=== PATIENT | female | born 1945 | race Caucasian/White ===

== ENCOUNTER 2019-07-27 07:58 | Outpatient (CLI) | payer MEDICARE, SELFPAY ==
--- NOTE | ~2019-07-27 | US_ITS ---
EXAMINATION: US art doppler w press [place] DATE: 07/27/2019 09:52 INDICATION: Arterial occlusive disease of the right lower extremity. TECHNIQUE: Segmental pressures and plethysmographic and Doppler waveforms of the brachial and lower e xtremity arteries were obtained. COMPARISON: None. FINDINGS: Right brachial artery pressure is 155 mm Hg. The left brachial artery pressure was not measured. The right low-thigh pressure index is 0.72. The right ankle-brachial index (ARABELLA) is 0.46 (normal >= 0 .9-1.0). The right great toe-brachial index (TBI) is 0.20 (normal >= 0.65). The right lower extremity segmental pressure gradients are borderline increased between the below-knee measurement and ankle ( normal gradients <= 20-30 mmHg between adjacent levels on the same leg or the same levels on the two legs). Arterial Doppler waveforms are biphasic in common femoral artery and superficial femoral arter y, noisy in popliteal artery and posterior tibial artery, and biphasic in dorsalis pedis. The left high-thigh pressure index is 1.11. The left ARABELLA is 1.06. The left TBI is 0.88. The left lowe r extremity segmental pressure gradients normal. Arterial Doppler waveforms are biphasic from common femoral artery to the ankle. The flow direction is reversed in posterior tibial artery. IMPRESSION: 1. Severely decreased right ARABELLA and TBI, consistent with right-sided arterial occlusive disease, whic h may be multifocal. Reviewed, dictated and finalized at location A. IMPRESSION: 1. Severely decreased right ARABELLA and TBI, consistent with right-sided arterial o cclusive disease, which may be multifocal.
== END 2019-07-27 07:59 | disposition home or self-care (01) ==
PROVIDERS: PCP Family Medicine; Visit Provider Podiatrist Foot & Ankle Surgery
DX: I73.9 Peripheral vascular disease, unspecified (principal)
CPT/HCPCS: 93923

== ENCOUNTER 2019-08-19 13:34 | Outpatient (CLI) | payer MEDICARE, SELFPAY ==
--- NOTE | ~2019-08-19 | MR_ITS ---
EXAMINATION: MR lumbar spine wo con EXAM DATE: 08/19/2019 14:43 INDICATION: Radiculopathy lumbosacral region. TECHNIQUE: Multi-sequential, multiplanar MR images of the lumbar spine were obtained without contrast . Sagittal T1, T2, T2 fat saturation images. Axial T2 weighted images. Comparison is made to prior examination from 02/19/2018. FINDINGS: There are chronic compression fractures T12-L5, all have been treated with vertebroplasty. More specifically, moderate anterior wedging of T12, mild to moderate at L1 and L2, moderate central compression of L3 and L4, mild to moderate at L5. There is 2 mm retrolisthesis L3 on L4. The conus me dullaris terminates at the T12-L1 level and has normal signal intensity and morphology. No bone елена ow edema, no sacral edema. Incidental note made of incompletely imaged abdominal aortic aneurysm, gianluca ged portion measuring 3.6 cm. Level by level evaluation: T11-12: There is a mild diffuse disc bulge. Facet arthropathy: Mild. Neural foraminal stenosis: Mild to moderate right, mild left. Central canal stenosis: Minimal. T12-L1: There is a mild diffuse disc bulge. Facet arthropathy: Mild to moderate right, mild left. Neural foraminal stenosis: No stenosis. Central canal stenosis: Minimal. L1-L2: There is a mild to moderate diffuse disc bulge. Facet arthropathy: Mild to moderate . Ligamentum flavum enlargement. Neural foraminal stenosis: Mild to moderate right, mild left. Central canal stenosis: Mild. L2-L3: There is a moderate diffuse disc bulge. Facet arthropathy: Moderate. Neural foraminal stenosis: Mild to moderate right, mild left. Central canal stenosis: Mild to moderate. L3-L4: There is a moderate diffuse disc bulge. Facet arthropathy: Moderate . Ligamentum flavum enlargement. Neural foraminal stenosis: Moderate bilateral. Central canal stenosis: Moderate. L4-L5: There is a mild to moderate diffuse disc bulge. Facet arthropathy: Mild to moderate. Neural foraminal stenosis: Moderate bilateral. Central canal stenosis: Moderate. L5-S1: There is a minimal diffuse disc bulge. Facet arthropathy: Mild. Neural foraminal stenosis: No stenosis. Central canal stenosis: No stenosis. Compared to prior study, there has been progression of the compression fractures at T12 and L1, and i nterval treatment of these levels with methylmethacrylate. IMPRESSION: 1. Chronic, treated compression fractures T12-L5. No acute findings. 2. Overall moderate lumbar spondylosis. 3. Incidental abdominal aortic aneurysm, has been previously evaluated. Reviewed, dictated and finalized at location A.
== END 2019-08-19 13:35 | disposition home or self-care (01) ==
LOC: ANHIMG 13:40
PROVIDERS: PCP Family Medicine; Visit Provider Nurse Practitioner Family
DX: M47.26 Other spondylosis with radiculopathy, lumbar region (principal); M48.55XD Collapsed vertebra, not elsewhere classified, thoracolumbar region, subsequent encounter for fracture with routine healing; I71.4 Abdominal aortic aneurysm, without rupture
CPT/HCPCS: 72148

== ENCOUNTER 2020-02-14 16:19 | Outpatient (CLI) | payer MEDICARE, SELFPAY ==
--- NOTE | ~2020-02-14 | MM_ITS ---
EXAMINATION: MM screening yasmeen BI w mari HISTORY: Screening TECHNIQUE: Craniocaudal and mediolateral oblique 3-D tomosynthesis images were obtained and synthetic 2-D images were generated. CAD analysis was submitted and interpreted. COMPARISON: Comparison to multiple prior studies sequentially, with oldest reviewed study dated 06/30. BREAST PARENCHYMAL COMPOSITION: There are scattered areas of fibroglandular density. FINDINGS: There is no evidence of suspicious mass, calcification, or architectural distortion to sugg est malignancy in either breast. There has been no suspicious interval change. IMPRESSION: 1. No mammographic evidence of malignancy. 2. Recommend routine screening mammography in one year. BI-RADS Category 1: Negative Reviewed, dictated and finalized at location A. MANAGER
== END 2020-02-14 16:20 | disposition home or self-care (01) ==
LOC: ANHIMG 16:21
PROVIDERS: Visit Provider Family Medicine
DX: Z12.31 Encounter for screening mammogram for malignant neoplasm of breast (principal)
CPT/HCPCS: 77063; 77067

== ENCOUNTER → 2020-04-09 10:07 | Outpatient (CLI) | payer MEDICARE, SELFPAY ==
--- NOTE | ~2020-04-09 | DEXA_ITS ---
Bone Density Report Name: Kailee Diaz Age: 74 Sex: Female Ethnicity: White Date of : 1945 Indication: postmenopausal osteoporosis; monitoring treatment; parental hip fracture; height loss; prior fracture; asthma or emphysema; hysterectomy; Referring Provider: Bright Berry Study: Bone densitometry was performed. Exam Date: April 09, 2020 Accession number: [id number] Bone Density: Region BMD T-score Z-score Classification Femoral Neck (Left) 0.494 -3.2 -1.1 Osteoporosis Total Hip (Left) 0.591 -2.9 -1.1 Osteoporosis World Health Organization criteria for BMD impression classify patients as: Normal (T-score at or above -1.0), Osteopenia (T-score between -1.0 and -2.5), or Osteoporosis (T-score at or below -2.5). 10-year Fracture Risk: FRAX not reported because: Some T-score for Spine Total or Hip Total or Femoral Neck at or below -2.5 Prior hip or vertebral fracture Treated for osteopor Previous Exams: Region Exam Age BMD T-score BMD Change BMD Change Date g/cm2 vs Baseline vs Previous Total Hip(Left) 04/09/2020 74 0.591 -2.9 -0.016 -0.016 02/15/2018 72 0.607 -2.7 *Denotes significance at 95% confidence level, LSC for Total Hip = 0.027 g/cm2 Clinical Information Provided by Patient: Have had a previous hip or vertebral fracture Has had a low trauma fracture Parent has had a hip fracture Is being treated for osteoporosis Has used the following medications: Prolia (i.e. denosumab), Vitamin D, Calcium Has the following medical conditions: Asthma or Emphysema, Hysterectomy Patient maximum height was 66 Menopause Age: 30 No regular weight bearing exercise Drinks caffeinated beverages Onset of menses at age 15 Number of children 2 Impression: The patient has established osteoporosis, based on the Left Femoral Neck T-score and the existence of a prior fracture. The patient has risk factors, including: parental hip fracture, previous fracture. No significant bone loss was observed. Discussion: PATIENT UNDER TREATMENT WITH NO SIGNIFICANT BMD LOSS SINCE LAST EXAM. In an untreated patient, BMD typically declines with age. A lack of decline or gain is usually a sign that treatment is efficacious and fracture risk is reduced. It is important to ask patients whether they are taking their medications and to encourage continued and appropriate compliance with their osteoporosis therapies to reduce fracture risk. It is also important to review their risk factors and encourage appropriate calcium and vitamin D intakes, exercise, fall prevention and other lifestyle
== END ==
PROVIDERS: PCP Family Medicine
DX: M81.0 Age-related osteoporosis without current pathological fracture (principal)
CPT/HCPCS: 77080

== ENCOUNTER → 2021-01-28 15:06 | Outpatient (CLI) | payer MEDICARE, SELFPAY ==
--- NOTE | ~2021-01-28 | XR_ITS ---
EXAMINATION: XR sinus min 3V DATE: 01/28/2021 15:22 INDICATION: Nasal congestion. Nasal drainage. Cough. TECHNIQUE: 5 views of the paranasal sinuses were obtained. COMPARISON: PET/CT 03/05/2016 FINDINGS: There is rightward deviation of the nasal septum. No fracture. The paranasal sinuses are gr ossly clear, but note that CT is more sensitive. IMPRESSION: 1. Rightward deviation of the nasal septum. Reviewed, dictated and finalized at location A.
== END ==
PROVIDERS: PCP Family Medicine; Visit Provider Family Medicine
DX: R09.81 Nasal congestion (principal); J34.2 Deviated nasal septum
CPT/HCPCS: 70220

== ENCOUNTER 2021-02-28 09:04 | Outpatient (CLI) | payer MEDICARE, SELFPAY ==
--- NOTE | ~2021-02-28 | US_ITS ---
EXAMINATION: US aorta EXAM DATE: 02/28/2021 09:55 INDICATION: AAA w/o rupture AAA . TECHNIQUE: Multiple grayscale and Doppler images of the abdominal aorta were obtained (by a technolog ist who performed the scan) and subsequently reviewed. Comparison is made to prior examination from . FINDINGS: Dimensions of mid abdominal aortic fusiform aneurysm reported on prior 2019 ultrasound were 4.1 x 3.6 cm. Maximal dimensions on this examination at 4.6 x 4.2 cm, mild interval increase in size. IMPRESSION: Increase in size of mid abdominal aortic 4.6 x 4.2 cm aneurysm. Reviewed, dictated and finalized at location B. 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
== END 2021-02-28 09:05 | disposition home or self-care (01) ==
PROVIDERS: PCP Family Medicine
DX: I71.4 Abdominal aortic aneurysm, without rupture (principal)
CPT/HCPCS: 76775

== ENCOUNTER 2021-03-25 00:36 | Day surgery (SDC) | payer MEDICARE, SELFPAY ==
[2021-03-13 14:54] VITALS: BMI 21.6
[2021-03-25 09:36] VITALS: BP 133/76; PULSE 77; RESP 18; TEMP 36.9; O2SAT 97; BMI 20.7
[2021-03-25] MEDS: LACTATED RINGERS 1,000 ML 150 ML IV CONT (09:49)
--- NOTE | 2021-03-25 09:57 | WPDGICN ---
Assessment and Plan Assessment and plan (1) Family history of colon cancer in mother: Code(s): Z80.0 - Family history of malignant neoplasm of digestive organs Status: Acute Assessment and Plan: Patient's mother had colon cancer. For this reason screening colonoscopy is advised. GI Consult Note Consult date/time: 03/25/21 09:57 HPI: Kailee Diaz is a 75 year old female Presents for screening colonoscopy. Patient's family history is significant that her mother had colon cancer. Patient's current weight appetite and bowel movements are normal. She denies abdominal pain. She has had no bleeding. 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 Murmur Numbness and tingling of both legs below knees Osteoarthritis Osteoporosis PAD (peripheral artery disease) w/ stents Personal history of malignant neoplasm of bronchus and lung Prediabetes Skin cancer (melanoma) Surgical History Surgical History History of vertebroplasty (~12/17/20) Hx of kyphoplasty (~01/22/21) Family History Family History Sibling Family history of cardiovascular disease Mother Carcinoma of colon, Onset Age: 72 Father Family history of lung cancer, Onset Age: 82 Mother Family history of cardiovascular disease Carcinoma of colon Family history of coronary artery disease Sibling Acute myocardial infarction, Onset Age: 68 Father Family history of lung cancer Social History Social History Smoking packs per day: 1 Smoking cigarettes per day: 20.0 Years smoked: 30 Smoking pack-years: 30.00 Smoking status: Former smoker Tobacco type: cigarettes Second hand tobacco smoke exposure: No Smoking end date: 04/13/15 Alcohol intake: never Living arrangements: with family Gender identity (if verbalized by the patient): Female Spiritual care concerns: No Meds Home Medications and Allergies Home Medications Medication Instructions Recorded Confirmed Type calcium carbonate 200 mg calcium 200 mg PO BID 02/24/19 03/13/21 History (500 mg) chewable tablet cranberry extract 500 mg tablet 500 mg PO BID 02/24/19 03/13/21 History aaebhqdkvidk-Vj-pzyz-minerals 1 tablet PO DAILY 02/24/19 03/13/21 History aspirin 81 mg tablet,delayed 81 mg PO DAILY 09/22/19 03/13/21 History release lisinopril 20 1 tablet PO DAILY tablet 10/25/20 03/13/21 History mg-hydrochlorothiazide 25 mg tablet omeprazole 40 mg capsule,delayed 40 mg PO DAILY cap 10/25/20 03/13/21 History release rosuvastatin 5 mg tablet 5 mg PO DAILY #90 tablet 12/10/20 03/13/21 Rx alendronate 70 mg tablet 70 mg PO WEEKLY #12 tablet 01/08/21 03/13/21 Rx Symbicort 160 mcg-4.5 See Rx Instructions .ROUTE 02/07/21 03/13/21 Rx mcg/actuation HFA aerosol inhaler .COMPLEX #11 g NS tramadol 50 mg tablet 50 mg PO Q8H PRN #90 tablet 02/14/21 03/13/21 Rx albuterol sulfate 2 inh INHALATION Q4-6H PRN 03/13/21 03/13/21 History clindamycin HCl 300 mg capsule See Rx Instructions .ROUTE 03/19/21 Rx .COMPLEX #30 cap ipratropium bromide 42 mcg (0.06 2 spray INTRANASAL TID #15 ml 03/19/21 Rx %) nasal spray Allergies Allergy/AdvReac Type Severity Reaction Status Date / Time amoxicillin Allergy Unknown Nausea Verified 03/25/21 09:35 shellfish derived Allergy Unknown Swelling Verified 1
--- NOTE | 2021-03-25 10:04 | WPDANESEPPF ---
Anes - Initial Pre Proc Eval Procedure: Operation Date: 03/25/21 10:30 Proposed Procedures p Screening Colonoscopy - Joshua Garcia MD Date/Time: 03/25/21 10:04 Surgeon: Joshua Garcia MD Pre Op Diagnosis: family hx colon ca Patient Data Age: 75 Gender: F Height: 1.65 m Weight: 56.7 kg Last Vital Signs Temp 36.9 C 03/25/21 09:36 Pulse 77 03/25/21 09:36 Resp 18 03/25/21 09:36 BP 133/76 03/25/21 09:36 Pulse Ox 97 03/25/21 09:36 Allergies Allergy/AdvReac Type Severity Reaction Status Date / Time amoxicillin Allergy Unknown Nausea Verified 03/25/21 09:35 shellfish derived Allergy Unknown Swelling Verified 03/25/21 09:35 simvastatin Allergy Unknown arthralgias Verified 03/25/21 09:35 sulfamethizole Allergy Unknown Nausea Verified 03/25/21 09:35 codeine AdvReac Unknown Nausea Verified 03/25/21 09:35 Home Medications Medication Instructions Recorded Confirmed Type calcium carbonate 200 mg calcium 200 mg PO BID 02/24/19 03/13/21 History (500 mg) chewable tablet cranberry extract 500 mg tablet 500 mg PO BID 02/24/19 03/13/21 History wfpmlfaokrij-Pf-xiaz-minerals 1 tablet PO DAILY 02/24/19 03/13/21 History aspirin 81 mg tablet,delayed 81 mg PO DAILY 09/22/19 03/13/21 History release lisinopril 20 1 tablet PO DAILY tablet 10/25/20 03/13/21 History mg-hydrochlorothiazide 25 mg tablet omeprazole 40 mg capsule,delayed 40 mg PO DAILY cap 10/25/20 03/13/21 History release rosuvastatin 5 mg tablet 5 mg PO DAILY #90 tablet 12/10/20 03/13/21 Rx alendronate 70 mg tablet 70 mg PO WEEKLY #12 tablet 01/08/21 03/13/21 Rx Symbicort 160 mcg-4.5 See Rx Instructions .ROUTE 02/07/21 03/13/21 Rx mcg/actuation HFA aerosol inhaler .COMPLEX #11 g NS tramadol 50 mg tablet 50 mg PO Q8H PRN #90 tablet 02/14/21 03/13/21 Rx albuterol sulfate 2 inh INHALATION Q4-6H PRN 03/13/21 03/13/21 History clindamycin HCl 300 mg capsule See Rx Instructions .ROUTE 03/19/21 Rx .COMPLEX #30 cap ipratropium bromide 42 mcg (0.06 2 spray INTRANASAL TID #15 ml 03/19/21 Rx %) nasal spray Patient hx anesthesia problems: none Family hx anesthesia problems: none Results Review: All pre-operative results and documents have been reviewed as part of the pre-operative evaluation. 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 Murmur Numbness and tingling of both legs below knees Osteoarthritis Osteoporosis PAD (peripheral artery disease) w/ stents Personal history of malignant neoplasm of bronchus and lung Prediabetes Skin cancer (melanoma) Surgical History Surgical History History of vertebroplasty (~12/17/20) Hx of kyphoplasty (~01/22/21) Family History Family History Sibling Family history of cardiovascular disease Mother Carcinoma of colon, Onset Age: 72 Father Family history of lung cancer, Onset Age: 82 Mother Family history of cardiovascular disease Carcinoma of colon Family history of coronary artery disease Sibling Acute myocardial infarction, Onset Age: 68 Father Family history of lung cancer Social History Social History Smoking packs per day: 1 Smoking cigarettes per day: 20.0 Years smoked: 30 Smoking pack-years: 30.00 Smoking status: Former smoker Tobacco type: cigarettes Second hand tobacco smoke exposure: No Smoking end date: 04/13/15 Alcohol intake: never Living arrangements: with family Gender identity (if verbalized by the
[2021-03-25 11:04] VITALS: BP 85/40; PULSE 72; RESP 18; O2SAT 100
[2021-03-25 11:14] VITALS: BP 106/53; PULSE 71; RESP 18; O2SAT 100
[2021-03-25 11:24] VITALS: BP 118/70; PULSE 68; RESP 20; O2SAT 99
== END 2021-03-25 11:34 | disposition home or self-care (01) ==
PROVIDERS: PCP Family Medicine; Visit Provider Internal Medicine Gastroenterology
PROC: 0DJD8ZZ Inspection of Lower Intestinal Tract, Via Natural or Artificial Opening Endoscopic (ICD-10-PCS; CPT 45378; principal; 2021-03-25 10:30)
DX: Z12.11 Encounter for screening for malignant neoplasm of colon (principal); K57.30 Diverticulosis of large intestine without perforation or abscess without bleeding; Z80.0 Family history of malignant neoplasm of digestive organs; I73.9 Peripheral vascular disease, unspecified; I71.4 Abdominal aortic aneurysm, without rupture; I10 Essential (primary) hypertension; E78.5 Hyperlipidemia, unspecified; J44.9 Chronic obstructive pulmonary disease, unspecified; K21.9 Gastro-esophageal reflux disease without esophagitis; M81.0 Age-related osteoporosis without current pathological fracture; M19.90 Unspecified osteoarthritis, unspecified site; M54.2 Cervicalgia; M54.9 Dorsalgia, unspecified; G89.29 Other chronic pain; R73.03 Prediabetes; R01.1 Cardiac murmur, unspecified; Z79.82 Long term (current) use of aspirin; Z86.718 Personal history of other venous thrombosis and embolism; Z85.118 Personal history of other malignant neoplasm of bronchus and lung; Z87.891 Personal history of nicotine dependence
CPT/HCPCS: G0105; J2704; J7120

== ENCOUNTER → 2021-04-08 10:47 | Outpatient (CLI) | payer MEDICARE, SELFPAY ==
[2021-04-08 19:04] LABS: SARS-CoV-2 RNA PCR Negative
== END ==
PROVIDERS: PCP Family Medicine; Visit Provider Nurse Practitioner
DX: Z20.822 Contact with and (suspected) exposure to COVID-19 (principal)
CPT/HCPCS: C9803; U0003; U0005

== ENCOUNTER 2021-07-25 13:14 | Outpatient (CLI) | payer MEDICARE, SELFPAY ==
--- NOTE | ~2021-07-25 | US_ITS ---
EXAMINATION: US venous doppler LE RT DATE: 07/25/2021 14:03 INDICATION: Right lower limb pain. TECHNIQUE: Grayscale ultrasound images without and with compression and Doppler ultrasound images of the right lower extremity veins were obtained. COMPARISON: None. FINDINGS: The visualized portions of right common femoral vein, profunda (deep) femoral vein, femoral vein, pop liteal vein, peroneal veins, posterior tibial veins, and greater saphenous vein outflow are patent. IMPRESSION: 1. No deep venous thrombosis. Reviewed, dictated and finalized at location A.
== END 2021-07-25 13:15 | disposition home or self-care (01) ==
LOC: ANHIMG 13:20
PROVIDERS: PCP Family Medicine; Visit Provider Family Medicine
DX: M79.661 Pain in right lower leg (principal)
CPT/HCPCS: 93971

== ENCOUNTER 2022-02-06 11:09 | Outpatient (CLI) | payer MEDICARE, SELFPAY ==
[2022-02-06 18:45] LABS: Basophils Absolute Auto 0.1 K/mm3 (0.0-0.1); Basophils Percent Auto 1.5 % (0.2-1.2); Eosinophils Absolute Auto 0.4 K/mm3 (0-0.3); Eosinophils Percent Auto 5.4 % (0-4.4); Hemoglobin 11.3 g/dL (12.0-15.0); Immature Granulocyte Absolute 0.01 K/mm3 (0.00-0.031); Immature Granulocyte Percent A 0.2 % (0-0.5); Lymphocytes Absolute Auto 1.98 K/mm3 (0.9-3.2); Lymphocytes Percent Auto 29.8 % (18.3-44.2); Mean Corpuscular HGB Conc 32.3 g/dl (32-36); Mean Corpuscular Hemoglobin 27.6 pg (26-34); Mean Corpuscular Volume 85.4 fl (80-100); Mean Platelet Volume 10.1 fl (7.4-10.4); Monocytes Absolute Auto 0.6 K/mm3 (0.1-0.6); Monocytes Percent Auto 9.2 % (2.6-8.5); Neutrophils Absolute Auto 3.6 K/mm3 (1.3-6.7); Neutrophils Percent Auto 53.9 % (45.5-73.1); Platelet Count Result 307 k/mm3 (150-375); Red Cell Distribution Width 14.7 % (11.5-14.5); White Blood Count 6.7 K/mm3 (4.5-10.0)
[2022-02-06 19:23] LABS: Alanine Aminotransferase 21 U/L (6-35); Albumin Level 4.1 g/dL (3.5-5.1); Alkaline Phosphatase 85 U/L (38-126); Anion Gap 9 mmol/L (8-16); Aspartate Amino Transferase 32 U/L (14-36); Bilirubin,Total 0.4 mg/dL (0.2-1.3); Blood Urea Nitrogen 14 mg/dL (7-17); Calcium 8.9 mg/dL (8.4-10.2); Carbon Dioxide 26 mmol/L (22-30); Chloride 96 mmol/L (98-107); Cholesterol 198 mg/dL (0-200); Estimated Glomerular Filt Rate > 60; Glucose 102 mg/dL (65-110); HDL Direct 55 mg/dL; Potassium 4.2 mmol/L (3.4-5.0); Sodium 131 mmol/L (137-145); Triglycerides 142 mg/dL (<150)
[2022-02-06 19:34] LABS: LDL Cholesterol Direct 98 mg/dL
[2022-02-06 19:36] LABS: Vitamin D 25 Hydroxy 50.5 ng/mL
[2022-02-06 22:27] LABS: Hemoglobin A1C 5.9 % (<5.7)
== END 2022-02-06 11:10 | disposition home or self-care (01) ==
LOC: ANHGOSHLAB 11:13
PROVIDERS: PCP Family Medicine; Visit Provider Family Medicine
DX: E78.5 Hyperlipidemia, unspecified (principal); I10 Essential (primary) hypertension; Z79.899 Other long term (current) drug therapy; Z00.00 Encounter for general adult medical examination without abnormal findings; R73.03 Prediabetes; E55.9 Vitamin D deficiency, unspecified
CPT/HCPCS: 36415; 80053; 80061; 82306; 82607; 83036; 84443; 85025

== ENCOUNTER 2022-04-11 10:41 | Outpatient (CLI) | payer MEDICARE, SELFPAY ==
--- NOTE | ~2022-04-11 | MM_ITS ---
EXAMINATION: MM screening yasmeen BI w mari HISTORY: Screening mammogram TECHNIQUE: Craniocaudal and mediolateral oblique 3-D tomosynthesis images were obtained and synthetic 2-D images were generated. CAD analysis was submitted and interpreted. COMPARISON: 03/02/2020, 08/05/2018, 08/03/2017 bilateral screening mammogram examinations BREAST PARENCHYMAL COMPOSITION: The breasts are heterogeneously dense, which may obscure small masses . FINDINGS: There is no evidence of suspicious mass, calcification, or architectural distortion to sugg est malignancy in either breast. There has been no suspicious interval change. IMPRESSION: 1. No mammographic evidence of malignancy. 2. Recommend routine screening mammography one year. BI-RADS Category 1: Negative Reviewed, dictated and finalized at location A. TECHNICAL LEAD
== END 2022-04-11 10:42 | disposition home or self-care (01) ==
LOC: ANHIMG 10:42
PROVIDERS: PCP Family Medicine; Visit Provider Family Medicine
DX: Z12.31 Encounter for screening mammogram for malignant neoplasm of breast (principal)
CPT/HCPCS: 77063; 77067

== ENCOUNTER → 2023-01-12 08:52 | Outpatient (CLI) | payer MEDICARE, MEDICAID, SELFPAY ==
--- NOTE | ~2023-01-12 | CT_ITS ---
EXAMINATION: CTA chest abdomen pelvis DATE: 01/12/2023 09:37 INDICATION: Abdominal aortic aneurysm without rupture. TECHNIQUE: Computed tomographic angiography (CTA) of the chest, abdomen, and pelvis was performed wit h 100 mL Omnipaque-350 intravenous contrast. Automated exposure control and iterative reconstruction technique were employed. The dose-length product was 697.34 mGy-cm. Maximum intensity projection 3D-r econstructions of the aorta and other arteries were constructed by the technologist on a separate wor kstation. COMPARISON: Chest CT 10/20/2016 FINDINGS: CHEST CTA: There is mild emphysema. There are changes of left upper lobectomy. There is mild scarring at right l magalys apex. No pleural effusion. The heart size is normal. There are coronary artery calcifications. No pericardial effusion. The aorta measures 3.6 cm at the sinuses of Valsalva, 3.1 cm at the sinotubula r junction, 3.7 cm in the mid ascending aorta, 2.8 cm at the aortic isthmus, and 2.7 cm in the mid de scending aorta. Aortic atherosclerosis is noted. There is a moderate-sized sliding hiatal hernia. The re are chronic fractures of the T7, T8, T9, and T12 vertebral bodies with changes of vertebroplasties . ABDOMEN AND PELVIS CTA: The liver, gallbladder, spleen, pancreas, and adrenal glands are normal. There is cortical thinning o f the kidneys. There is diverticulosis of the colon without evidence of diverticulitis. There is a 4. 4 cm fusiform infrarenal aortic aneurysm. There is calcified atherosclerosis of the aorta and many of the other arteries. There is no significant stenosis of celiac axis. There is moderate stenosis of s uperior mesenteric artery and left renal artery. There is no significant stenosis of right renal troy ry. There is moderate stenosis of inferior mesenteric artery. There are no pathologically enlarged ly mph nodes. There is no free intraperitoneal fluid. There is a total right hip arthroplasty. There is an old healed fracture of right inferior pubic ramus. There are chronic fractures of L1-L5 vertebral bodies with changes of vertebroplasties. IMPRESSION: 1. 4.4 cm fusiform infrarenal aortic aneurysm. 2. Arterial occlusive disease including moderate stenosis of superior and inferior mesenteric arterie s and left renal artery. Reviewed, dictated and finalized at location E. IMPRESSION: 1. 4.4 cm fusiform infrarenal aortic aneurysm. 2. Arterial occlusive disease including moderate stenosis of superior and infer ior mesenteric arteries and left renal artery.
[2023-01-12 09:21] LABS: Estimated Glomerular Filt Rate 54
== END ==
PROVIDERS: PCP Family Medicine
DX: I71.43 Infrarenal abdominal aortic aneurysm, without rupture (principal); I70.1 Atherosclerosis of renal artery; K55.1 Chronic vascular disorders of intestine
CPT/HCPCS: 71275; 74174; Q9967

== ENCOUNTER → 2023-01-27 12:52 | Outpatient (CLI) | payer MEDICARE, MEDICAID, SELFPAY ==
--- NOTE | ~2023-01-27 | MR_ITS ---
MRI of the thoracic spine Clinical History: Back pain Technique: Axial T2-weighted and gradient images, and sagittal T1-weighted, T2-weighted, and STIR gianluca ges were acquired. COMPARISON: 04/20/2019 Findings: There are stable compression fractures with vertebroplasty cement at T7, T8, T9, T12, L1, a nd L2. These are unchanged from prior exam. No new fracture or subluxation evident. No suspicious bon e marrow signal abnormality seen. There is mild disc bulge with facet arthropathy at T11-T12, with probable mild central canal stenosis . No other spinal canal stenosis or cord compression evident in the remainder of the thoracic spine. No other disc bulge or herniation evident. Paravertebral soft tissues are unremarkable. Impression: Chronic compression fractures with vertebroplasty cement at T7, T8, T9, T12, L1, and L2. These are st able from prior exam. Mild to moderate degenerative spondylosis at T11-T12, with probable mild central canal stenosis. Reviewed, dictated and finalized at [facility]. Impression: Chronic compression fractures with vertebroplasty cement at T7, T8, T9, T12, L1 , and L2. These are stable from prior exam. Mild to moderate degenerative spondylosis at T11-T12, with probable mild centra l canal stenosis.
--- NOTE | ~2023-01-27 | MR_ITS ---
EXAMINATION: MR lumbar spine wo con DATE: 01/27/2023 13:47 INDICATION: Lumbago. TECHNIQUE: Magnetic resonance imaging (MRI) of the lumbar spine was performed without intravenous con trast. COMPARISON: Lumbar spine MRI 08/19/2019, CT abdomen and pelvis 01/12/2023 FINDINGS: There is 5 degrees levocurvature of thoracolumbar spine. There are chronic fractures of T12 -L5 vertebral bodies with changes of vertebroplasty at all levels. Intervertebral disc heights are no rmal. The distal spinal cord signal intensity is normal. The conus medullaris is at T12-L1. There is an insufficiency fracture of right sacral ala with edema-like marrow signal intensity. There is a 4.4 cm fusiform infrarenal aortic aneurysm. The following disc levels are specifically discussed: L1-L2: The disc is bulging. There is severe bilateral facet joint osteoarthritis. There is mild bilat eral neural foraminal stenosis. There is mild central canal stenosis. L2-L3: The disc is bulging. There is moderate bilateral facet joint osteoarthritis. There is moderate right and mild left neural foraminal stenosis. There is mild central canal stenosis. L3-L4: The disc is bulging. There is severe bilateral facet joint osteoarthritis. There is moderate b ilateral neural foraminal stenosis. There is mild central canal stenosis. L4-L5: The disc is bulging. There is severe bilateral facet joint osteoarthritis. There is moderate b ilateral neural foraminal stenosis. There is mild central canal stenosis. L5-S1: There is a left foraminal protrusion. There is moderate right and severe left facet joint oste oarthritis. There is mild bilateral neural foraminal stenosis. There is no central canal stenosis. IMPRESSION: 1. Subacute insufficiency fracture of right sacral ala. 2. Moderate lumbar spondylosis, stable from 08/19/2019. 3. 4.4 cm fusiform infrarenal aortic aneurysm. Reviewed, dictated and finalized at location E.
== END ==
PROVIDERS: PCP Nurse Practitioner Family; Visit Provider Nurse Practitioner Family
DX: M43.06 Spondylolysis, lumbar region (principal); M43.04 Spondylolysis, thoracic region; M48.54XA Collapsed vertebra, not elsewhere classified, thoracic region, initial encounter for fracture; M48.56XA Collapsed vertebra, not elsewhere classified, lumbar region, initial encounter for fracture; I71.43 Infrarenal abdominal aortic aneurysm, without rupture
CPT/HCPCS: 72146; 72148

== ENCOUNTER → 2023-03-25 14:07 | Outpatient (CLI) | payer MEDICARE, MEDICAID, SELFPAY ==
--- NOTE | ~2023-03-25 | DEXA_ITS ---
Bone Density Report Name: RAMON HARTMAN Age: 77 Sex: Female Ethnicity: White Date of : 1945 Indication: postmenopausal osteoporosis; monitoring treatment; parental hip fracture; height loss; prior fracture; hysterectomy; Referring Provider: Columba Billy Study: Bone densitometry was performed. Exam Date: March 25, 2023 Accession number: [id number] Bone Density: Region BMD T-score Z-score Classification Femoral Neck (Left) 0.520 -3.0 -0.8 Osteoporosis Total Hip (Left) 0.540 -3.3 -1.4 Osteoporosis World Health Organization criteria for BMD impression classify patients as: Normal (T-score at or above -1.0), Osteopenia (T-score between -1.0 and -2.5), or Osteoporosis (T-score at or below -2.5). 10-year Fracture Risk: FRAX not reported because: Some T-score for Spine Total or Hip Total or Femoral Neck at or below -2.5 Prior hip or vertebral fracture Treated for osteopor Previous Exams: Region Exam Age BMD T-score BMD Change BMD Change Date g/cm2 vs Baseline vs Previous Total Hip(Left) 03/25/2023 77 0.540 -3.3 -0.067* -0.051* 04/09/2020 74 0.591 -2.9 -0.016 -0.016 02/15/2018 72 0.607 -2.7 *Denotes significance at 95% confidence level, LSC for Total Hip = 0.027 g/cm2 Clinical Information Provided by Patient: Have had a previous hip or vertebral fracture Has had a low trauma fracture Parent has had a hip fracture Is being treated for osteoporosis Has used the following medications: Prolia (i.e. denosumab), Vitamin D, Calcium, INHALER Has the following medical conditions: Hysterectomy, COPD Patient maximum height was 66 Menopause Age: 30 No regular weight bearing exercise Does not regularly consume dairy products Drinks caffeinated beverages Onset of menses at age 15 Number of children 2 Impression: The patient has established osteoporosis, based on the Left Total Hip T-score and the existence of a prior fracture. The patient has risk factors, including: parental hip fracture, previous fracture. The BMD for the Total Hip(Left) decreased, changing by -0.051 since the last DXA exam. Discussion: SIGNIFICANT BONE LOSS OBSERVED. Adherence to therapy (including calcium and vitamin D intake) should be assessed. If compliance is not a factor, review management and exclusion of secondary causes of bone loss. It is important to ask patients whether they are taking their medications and to encourage continued and appropriate compliance with their osteoporosis therapies to reduce fracture risk. It is also important to review their risk factors and e
== END ==
PROVIDERS: PCP Family Medicine; Visit Provider Family Medicine
DX: M81.0 Age-related osteoporosis without current pathological fracture (principal); Z78.0 Asymptomatic menopausal state
CPT/HCPCS: 77080

== ENCOUNTER 2023-04-16 07:09 | Outpatient (RCR) | payer MEDICARE, MEDICAID, SELFPAY ==
[2023-03-27 09:30] VITALS: BMI 23.1
== END 2023-06-15 09:17 | disposition home or self-care (01) ==
LOC: ANHWOC 07:09
PROVIDERS: PCP Family Medicine; Visit Provider Family Medicine
DX: L97.929 Non-pressure chronic ulcer of unspecified part of left lower leg with unspecified severity (principal)
CPT/HCPCS: 99212; 99213; A9270; G0463

== ENCOUNTER 2023-06-26 08:02 | Outpatient (CLI) | payer MEDICARE, SELFPAY ==
--- NOTE | ~2023-06-26 | US_ITS ---
US arterial ankle brachial ind INDICATION: Peripheral vascular disease TECHNIQUE: Segmental pressures and plethysmographic and Doppler waveforms of the brachial and lower e xtremity arteries were obtained. COMPARISON: None. FINDINGS: Right and left brachial artery pressures of 165 mm Hg. Left brachial artery pressure not performed. The right ankle-brachial index (ARABELLA) is 0.69 (normal >= 0.9-1.0). The right great toe-brachial index (TBI) is 0.21 (normal >= 0.60). The left ARABELLA is 0.9. The left TBI is 0.67. IMPRESSION: 1. Moderate right and mild left peripheral arterial disease based on ankle and toe brachial indices. Reviewed, dictated and finalized at location A.
== END 2023-06-26 08:03 | disposition home or self-care (01) ==
PROVIDERS: PCP Family Medicine
DX: I73.9 Peripheral vascular disease, unspecified (principal)
CPT/HCPCS: 93922

== ENCOUNTER 2024-05-26 15:22 | Outpatient (CLI) | payer MEDICARE, SELFPAY ==
--- NOTE | ~2024-05-26 | MM_ITS ---
EXAMINATION: MM screening yasmeen BI w mari HISTORY: Screening TECHNIQUE: Craniocaudal and mediolateral oblique 3-D tomosynthesis images were obtained and synthetic 2-D images were generated. CAD analysis was submitted and interpreted. COMPARISON: Comparison to multiple prior studies sequentially, with oldest reviewed study dated 07/01. BREAST PARENCHYMAL COMPOSITION: Dense: The breasts are heterogeneously dense, which may obscure small masses FINDINGS: There is no evidence of suspicious mass, calcification, or architectural distortion to sugg est malignancy in either breast. There has been no suspicious interval change. IMPRESSION: 1. No mammographic evidence of malignancy. 2. Recommend routine screening mammography in one year. BI-RADS Category 1: Negative Reviewed, dictated and finalized at location B. SFER PROFESSOR
--- OUTSIDE RECORDS SUMMARY | 2024-05-26 15:28 | XMS_ITS | Encounter Summary ---
Author Organization [facility] Address [address] [place] [address] Care Team Providers Care Food Assembler Name Role Phone Joby Billy MD Primary Care Provider Reason for Visit * Reason Onset Date Comments 05/26 AIF scheduled for 05/31 mm/at 05/26/2024 Encounter Details Date Type Department Care Team (Late st Contact Info) Description 05/26/2024 Telephone [facility] Heart [facility]ascular - [address] [facility] [address] [address] [facility] [address] [place] [address] [place] [address] [facility] [address] [place] [address] 05/26 AIF scheduled for 18 mm/at Social History Tobacco Use Types Packs/Day Years Used Date Smoking Tobacco: Former Cigarettes Q uit: 2017 Alcohol Use Standard Drinks/Week Comments Never 0 (1 standard drink = 0.6 oz pur e alcohol) Feeling Safe Answer Date Recorded Are you in a relationship wi th someone who hurts you emotionally and/or physically? No 08/04/2023 Food Insecurity Answer Date Recorded Social/Environmental Concerns No concerns Transportation Needs Answer Date Record ed Social/Environmental Concerns No concerns Housing Stability Answer Date Recorded Social/Environmental Concerns No concerns Utility Needs Answer Date Recorded Social/Environmental Concerns No concerns Comments No Sex and Gender Information Value Date Recorded Sex Assigned at Not on file Legal Sex Female 2:45 PM CDT Gender Identity Not on file Sexual Orientation Not on file documented as of this encounter Miscellaneous Notes * Telephone Encounter - Marge Bermudez RN - 05/26/2024 10:20 AM DIRECTOR OF CLAIMS Patient scheduled for peripheral angiogram with possible percutaneous intervention with Dr. Shawn TaborMay 31, 2024. Arrive to [facility], [address] [facility] [address] arrival at [id number] and 0900. Marge will call you. Please follow the below instructions: 1. Nothing to eat or drink after midnight the night before the procedure except for sips of water with your medications. 2. May take AM medications, including Plavix 75 mg, Xarelto 2.5 mg and either four tablets of 81 mgor one tablet of 325 mg aspirin, the morning of the procedure. 3. Labs to be drawn anytime between today and tomorrow. Does not need to be fasting. Can be done [facility] or [facility]. You will only be notified if there are any results that would effect your procedure. 4. Transportation to and from the procedure 5. Patient denies allergy to contrast dye. Our precert department will be responsible for sending request and information for your procedure. If you get notification of review or denial from your insurance do not think your procedure has beencancelled. We will not cancel procedure until the day before in morning case and day of if afternoon case. We will contact you to let you know if there are any issues with authorization. POST PROCEDURE LIMITATIONS No heavy lifting greater than 10 pounds (gallon of milk) for a week No driving for 2-4 days depending on access No swimming, hot tub or bathing for a week but can shower. Other instructions will be given on day of procedure. Scheduled with Rianna in [facility] Sent information to [facility] due to less than a week for procedure Information sent to [facility] CTOR OF CLAIMS CTOR OF CLAIMS CTOR OF CLAIMS documented in this encounter Plan of Treatment Upcoming Encounters Date Type Department Care Team (Latest Contact Info) Description 05/31/2024 11:09 AM DIRECTOR OF CLAIMS Hospital Encounter [facility] Media Director [address] [place] [address] [place] [address] [address] PAD (peripheral artery disease) 05/31/2024 11:09 AM DIRECTOR OF CLAIMS - 05/31/2024 12:25 PM DIRECTOR OF CLAIMS Surgery [facility] Media Director [address] [place] [address] [place] [address] [address] Aorta iliac femoral angiography Pending Results Name Type Priority Associated Diagnoses Date /Time CBC WITH DIFFERENTIAL Lab Routine Essential hypertension 05/26/2024 3:04 PM DIRECTOR OF CLAIMS BASIC METABOLIC PANEL Lab Routine Peripheral arterial disease 05/26/2024 3:04 PM DIRECTOR OF CLAIMS Scheduled Orders Name Type Priority Associated Diagnoses Orde r Schedule CBC WITH DIFFERENTIAL Lab Routine Essential hypertension Expected: 05/26/2024 (Approximate), Expires: 05/26/2025 BASIC METABOLIC PANEL Lab Routine Peripheral arterial disease Expected: 05/26/2024 (Approximate), Expires: 05/26/2025 documented as of this encounter Visit Diagnoses Diagnosis PAD (peripheral artery disease) Unspecified disorders of arteries and arterioles Essential hypertension- Primary Unspecified essential hypertension Peripheral arterial disease Unspecified disorders of arteries and arterioles PAD (peripheral artery disease) Unspecified disorders of arteries and arterioles documented in this encounter Care Teams Food Assembler Relationship Specialty Start Date End Date Joby Billy MD [address] [place] [id number] PCP - General Family Practice 07/29/19 documented as of this encounter
--- OUTSIDE RECORDS SUMMARY | 2024-05-26 15:28 | XMS_ITS | Encounter Summary ---
Author Organization [facility] Address [address] [place] [address] Care Team Providers Care Retail Banker Name Role Phone Joby Billy MD Primary Care Provider Reason for Visit * Reason Onset Date Comments Critical ischemia 08/07/2022 Spoke Carlos/ Simran @ Dr. Lloyd exchange Encounter Details Date Type Department Care Team (Late st Contact Info) Description 08/07/2022 Telephone [facility] Admitting [address] [place] [address] BanMustapha vicente, [address] [facility] [address] [place] [address] Critical ischemia (Spoke Carlos/ Simran @ Dr. Lloyd exchange) Social History Tobacco Use Types Packs/Day Years Used Date Smoking Tobacco: Former Cigarettes Q uit: 2017 Alcohol Use Standard Drinks/Week Comments Never 0 (1 standard drink = 0.6 oz pur e alcohol) Feeling Safe Answer Date Recorded Are you in a relationship wi th someone who hurts you emotionally and/or physically? No 08/06/2022 Food Insecurity Answer Date Recorded Social/Environmental Concerns No concerns Transportation Needs Answer Date Record ed Social/Environmental Concerns No concerns Housing Stability Answer Date Recorded Social/Environmental Concerns No concerns Utility Needs Answer Date Recorded Social/Environmental Concerns No concerns Comments Unknown Sex and Gender Information Value Date Recorded Sex Assigned at Not on file Legal Sex Female 2:45 PM CDT Gender Identity Not on file Sexual Orientation Not on file COVID-19 Exposure Response Date Recorded In the last 10 days, have yo u been in contact with someone who was confirmed or suspected to have Coronavirus/COVID-19? No / Unsure 07/30/2022 8:05 AM CDT documented as of this encounter Plan of Treatment Upcoming Encounters Date Type Department Care Team (Latest Contact Info) Description 05/31/2024 11:09 AM LAST IRONER Hospital Encounter [facility] Cardiac Mobile Product Manager [address] [place] [address] [place] [address] [address] PAD (peripheral artery disease) 05/31/2024 11:09 AM LAST IRONER - 05/31/2024 12:25 PM LAST IRONER Surgery [facility] Cardiac Mobile Product Manager [address] [place] [address] [place] [address] [address] Aorta iliac femoral angiography documented as of this encounter Visit Diagnoses Not on filedocumented in this encounter Care Teams Retail Banker Relationship Specialty Start Date End Date Joby iBlly MD [address] [place] [address] PCP - General Family Practice 07/29/19 documented as of this encounter
--- OUTSIDE RECORDS SUMMARY | 2024-05-26 15:28 | XMS_ITS | Clinical Summary ---
Author Organization [facility] [address] [place] [address] Address [address] [place] [address] Care Team Providers Care Dressage Instructor Name Role Phone Joby Billy MD Primary Care Provider Allergies Active Allergy Reactions Criticality Noted Date Comments Duloxetine Itching Low 09/02/2019 Rosuvastatin Other (See Comments) 11/04/2019 Myositis (elev CK) Shellfish Containing Products Swelling Medium 07/29/2019 Medications albuterol HFA 90 mcg inhaler Take 2 Puffs by inhalation every 6 hours as needed for Shortness of Breath. Trelegy 100 mcg/ 625mcg/ 25 mcg 1 puff daily Active multivitamin (DAILY-PAULA) tablet Take 1 Tablet by mouth daily. Active calcium citrate-vitamin d3 (CITRACAL D MAX) 315 mg- 250 unit Tablet Take by mouth daily. Active omeprazole (PriLOSEC) 40 mg Capsule, Delayed Release(E.C.) Take 40 mg by mouth daily. Active Cranberry 500 mg Capsule Take 500 mg by mouth daily. Active rosuvastatin (CRESTOR) 20 mg tablet Take 1 Tablet (20 mg) by mouth daily. 90 Tablet 3 Active fluticasone-ume clidinium-vilan terol (Trelegy Ellipta) 100-62.5-25 mcg Disk with Device Take 1 Puff by inhalation daily. Active traMADoL (ULTRAM) 50 mg tabletIndicatio ns:Critical limb ischemia of right lower extremity (CMS/HCC) Take 0.5 Tablets (25 mg) by mouth every 6 hours as needed for Pain. 15 Tablet 4 Active Additional Information Patient taking differently:25 mg OralTHREE TIMES DAILY, Reported on 05/26/2024 lisinopril-hydr oCHLOROthiazide (ZESTORETIC) 20-25 mg tablet Take 1 Tablet by mouth daily. 4 Active gabapentin (NEURONTIN) 100 mg capsule Take 100 mg by mouth 3 times daily. Active estradioL (ESTRACE) 0.01% (0.1 mg/g) vaginal cream 4 Active clopidogreL (PLAVIX) 75 mg Tablet Starting 08/06/23, Take 1 Tablet (75 mg) by mouth daily. 90 Tablet 3 4 Active clobetasoL (TEMOVATE) 0.05 % Cream APPLY CREAM TOPICALLY TO RASH TWICE DAILY FOR UP TO 4 WEEKS, THEN A 2 WEEK BREAK (NO FACE); ONCE RESOLVED, THEN USE NEEDED. 4 Active valACYclovir (VALTREX) 500 mg tablet TAKE 4 TABLETS BY MOUTH AT FIRST SIGN OF ATTACK, THEN TAKE 4 TABS 12 HOURS LATER. 4 Active rivaroxaban (Xarelto) 2.5 mg Tablet Take 1 tablet by mouth twice daily 180 Tablet 3 5 Active Active Problems Patient Care Coordination No te Formatting of this note migh t be different from the original. Vascular Care - Dr. Shawn Lloyd MD, [facility], [facility] - [address] [facility] [address] Dayo Calixto, DPM Cardiothoracic Surgery - Dr. Basurto Problem Noted Date Diagnosed Date PAD (peripheral artery disease) 07/27/2023 PVD (peripheral vascular disease) 06/22/2023 Protein-calorie malnutrition, moderate Peripheral arterial disease 06/10/2023 Hypokalemia 08/07/2022 Hyponatremia 08/07/2022 Hyperlipidemia 08/07/2022 Chronic obstructive pulmonary disease 08/07/2022 Gastroesophageal reflux disease 08/07/2022 History of tobacco abuse 08/07/2022 Peripheral vascular disease of lower extremity 0 08/07/2022 Venous insufficiency 10/10/2019 Essential hypertension 07/29/2019 Dyslipidemia 07/29/2019 H/O pneumonectomy 07/29/2019 Abdominal aortic aneurysm (AAA) without rupture 07/29/2019 Resolved Problems Problem Noted Date Diagnosed Date Resolved Date Atherosclerosis of [place] of right lower extremity with rest pain 08/07/2022 Critical limb ischemia of ri ght lower extremity 08/07/2022 05/26/2024 Encounters Date Type Department Care Team Description 05/26/2024 11:15 AM PAVING SUPERVISOR Office Visit [facility] and Vascular - [address] [place] [address] Shawn Lloyd MD PAD (peripheral artery disease) (Primary Dx); Infrarenal abdominal aortic aneurysm (AAA) without rupture; Mixed hyperlipidemia; Essential hypertension 05/26/2024 7:52 AM PAVING SUPERVISOR Hospital Encounter [facility] [address] [place] [address] Yvonne Lopez NP Arrived 05/26/2024 7:51 AM PAVING SUPERVISOR Hospital Encounter [facility] [address] [place] [address] Yvonne Lopez NP Arrived 05/26/2024 Telephone [facility] Vascular - [address] [place] [address] Shawn Lloyd MD 05/26 AIF scheduled for /18 mm/at 05/26/2024 Prep for Surgery [facility] Vascular - [address] [place] [address] Marge Bermudez RN 05/05/2024 External Device Data STL ABSTRACTION Provider, Abstract 05/04/2024 External Device Data STL ABSTRACTION Provider, Abstract 05/03/2024 External Device Data STL ABSTRACTION Provider, Abstract 04/13/2024 Refill [facility] - [address] [address] [facility] [address] [place] [address] Shawn Lloyd MD 04/07/2024 [facility] Heart and Vascular - [address] [facility] [address] [address] [facility] [address] [place] [address] Shawn Lloyd MD from Last 3 Months Immunizations Immunization Administration Dates Next Due (SPIKEVAX) (12 YRS UP PRIMAR Y SERIES) COVID-19 VACCINE - MRNA-1273(PF) 100 MCG/0.5 ML IM SUSP 02/03/2021,07/04/2020,06/06/2020 Family History Medical History Relation Name Comments Lung Cancer Father Other Father Tobacco Use Heart Disease Mother Lung Cancer Mother Other Mother Tobacco Use Lung Cancer Sister Other Sister Tobacco Use Relation Name Status Comments Father Lung Mother Sister Social History Tobacco Use Types Packs/Day Years Used Date Smoking Tobacco: Former Cigarettes Q uit: 2017 Tobacco Cessation:Counseling Given: Not Answered Alcohol Use Standard Drinks/Week Comments Never 0 [...] on file Sexual Orientation Not on file Last Filed Vital Signs Vital Sign Reading Time Taken Comments Blood Pressure 128/62 05/26/2024 9:34 AM PAVING SUPERVISOR Pulse 68 05/26/2024 9:34 AM PAVING SUPERVISOR Temperature 36.7 C (98 F) 08/05/2023 8:42 AM CDT Respiratory Rate 18 08/05/2023 8:42 AM CDT Oxygen Saturation 100% 08/05/2023 8:42 AM CDT Inhaled Oxygen Concentration - - Weight 55.8 kg (123 lb) 05/26/2024 9:34 AM PAVING SUPERVISOR Height 157.5 cm (5' 2 ) 05/26/2024 9:34 AM PAVING SUPERVISOR Body Mass Index 22.5 05/26/2024 9:34 AM PAVING SUPERVISOR Plan of Treatment Upcoming Encounters Date Type Department Care Team (Latest Contact Info) Description 05/31/2024 11:09 AM PAVING SUPERVISOR Hospital Encounter [facility] Cardiac Chain Saw Mechanic [address] [place] [address] [place] [address] [facility] [address] [place] [address] PAD (peripheral artery disease) 05/31/2024 11:09 AM PAVING SUPERVISOR - 05/31/2024 12:25 PM PAVING SUPERVISOR Surgery [facility] Cardiac [facility] [address] [place] [address] [place] [address] [address] Aorta iliac femoral angiography Health Maintenance Due Date Last Done Comments DTAP/TDAP/TD VACCINES (1 - Tdap) 1964 PNEUMOCOCCAL VACCINE 65+ YEA RS (1 of 2 - PCV) 1964 ZOSTER VACCINE (1 of 2) 10/24/1995 OSTEOPOROSIS SCREENING 2010 RSV VACCINE (60+ or ) (1 - 1-dose 75+ series) 2020 INFLUENZA VACCINE (#1) 2023 COVID-19 Vaccine ( season) 2023 02/03/2021, 07/04/2020, 06/06/2020 [place]) Prev entative Visit/Annual Wellness Visit 04/13/2024 Medical Devices Implanted Type Area Accounting Systems Analyst Device Identifier Shelf Expiration Date Model / Serial / Lot Web Site Manager Clip Surgiclip Ii Luis Enrique 11.5in [id number] - [id number] Implanted:Qt y: 1 on 06/11/2023 by Araceli Frankel MD at [facility] Right: Groin [employer] - COVIDIEN 10/11/2027 [id number] / / Web Site Manager Clip Surgiclip Iii Ti Luis Enrique Sm 9in [id number] - [id number] Implanted:Qt y: 1 on 06/11/2023 by Araceli Frankel MD at [facility] Clip Right: Groin [employer] - COVIDIEN 01/11/2028 [id number] / / [id number] Closure Angioseal 6fr Vip [id number] - [id number] Implanted:Qt y: 1 on 08/08/2022 at [facility] Closure Device Left: Groin [facility] [employer] 04/12/2023 [id number] / / [id number] 65 Patch Vascu-Guard 0.8x8cm Cardio [id number] - [id number] Implanted:Qt y: 1 on 06/11/2023 by Araceli Frankel MD at [facility] Right: Groin [employer] 12/25/2023 [id number] / / [id number] R Pop Stent Abslt Pv [id number] 08/03/2019 Implanted:Qt y: 1 on 08/03/2019 by Shawn Lloyd MD Stent Right: Popliteal Artery LOU- VASC DEVICE [id number] 09/10/2021 [id number] / / [id number] Description:Absolute Pro 6.0 x 100 mm-R popliteal R Sfa Stent Abslt Pv [id number] /22/2020 Implanted:Qt y: 1 on 08/03/2019 by Shawn Lloyd MD Stent Right: Popliteal Artery LOU- VASC DEVICE [id number] 11/10/2020 [id number] / / [id number] Description:Absolute Pro 6.0 x 60 mm-R SFA Stent Vasc Louise [id number] - [id number] Implanted:Qt y: 1 on 08/08/2022 at [facility] Stent Right: Leg [employer] 04/30/2023 [id number] / / [id number] Stent Vasc Louise [id number] - [id number] Implanted:Qt y: 1 on 08/08/2022 at [facility] Stent Right: Leg [employer] 05/01/2024 [id number] / / [id number] Stent Viabahn Hep [id number] - [id number] Implanted:Qt y: 1 on 08/04/2023 at [facility] Stent Right: Leg [employer] 01/21/2024 [id number] / [id number] / Stent Synergy Xd 3.5x48mm Evrlms Elut [id number] - [id number] Implanted:Qt y: 1 on 08/04/2023 at [facility] Stent Right: Leg [employer] 02/15/2025 [id number] / / [id number] Stent Vasc Louise [id number] - [id number] Implanted:Qt y: 1 on 08/04/2023 at [facility] Stent Right: Leg [employer] 04/23/2024 [id number] / / [id number] Stent Vasc Louise [id number] 410 - [id number] Implanted:Qt y: 1 on 08/04/2023 at [facility] Stent Right: Leg [employer] 05/01/2024 [id number] / / [id number] Procedures Procedure Name Priority Date/Time Associated Diagnosis Comments US DUPLEX ARTERIAL LEG RIGHT Routine 05/26/2024 9:50 AM PAVING SUPERVISOR PAD (peripheral artery disease) US ANKLE PRESSURE INDEX Routine 05/26/2024 9:00 AM PAVING SUPERVISOR PAD (peripheral artery disease) from Last 3 Months Results * US DUPLEX ARTERIAL LEG RIGHT (05/26/2024 9:50 AM PAVING SUPERVISOR) Anatomical Region Laterality Modality Lower Extremity Ultrasound 05/26/2024 8:49 AM PAVING SUPERVISOR Narrative 05/26/2024 9:58 AM PAVING SUPERVISOR [facility] Testing Limited Lower Extremity Arterial Duplex Study Patient: Kailee Diaz Study ID: [id number] Gender: F : 1945 Age: 78 Race: CAU Height 157.5cm Study Date: 05/26/2024 Weight: 50.8kg Access. #: [id number] *Referring Physician:* Yvonne Lopez Mae Armer *Ordering Physician:* Yvonne Lopez *Nurse Epidemiologist:* Cyndee Oneill Indications: Peripheral arterial disease. Study data: Procedure: A vascular evaluation was performed with the patient in the supine position. Imaged vessel(s): the right common iliac, right external iliac, right common femoral, right deep femoral, right femoral, right popliteal, right anterior tibial, right posterior tibial, and right dorsal pedal arteries. Presentation case quality. Limited lower extremity arterial duplex study. Right lateral evaluation with ankle-brachial index and pulse volume recording. Birthdate: Patient birthdate: 1945. Age: Patient is 78year(s) old. Sex: gender: female. Height: 157.5cm. 62in. Weight: 50.8kg. : 112lb. Body mass index: BMI: 20.5kg/m^2. Body surface area: BSA: 1.49m^2. Study date: Study date: 05/26/2024. Study time: 08:49 AM. Impressions Right lower extremity; Visuall, stent in proximal Femoeral artery appears patent. There is decreased velocity in distal Femoral artery and Popliteal artery suggesting a significant, more proximal stenosis. Tables: Arterial flow: + +-----+ !Location !V sys! + +-----+ !Right common femoral !123 ! + +-----+ !Right deep femoral - proximal !-63.8! + +-----+ !Right femoral - proximal !57.4 ! + +-----+ !Right femoral - mid !-78.5! + +-----+ !Right femoral - distal !-42.7! + +-----+ !Right popliteal - proximal !22.3 ! + +-----+ !Right popliteal - distal !27.9 ! + +-----+ !Right tibial trunk !415 ! + +-----+ !Right anterior tibial - proximal !27 ! + +-----+ !Right anterior tibial - mid !-15.8! + +-----+ !Right anterior tibial - distal !34.1 ! + +-----+ !Right posterior tibial - proximal!58.1 ! + +-----+ !Right posterior tibial - mid !52.5 ! + +-----+ !Right posterior tibial - distal !46.9 ! + +-----+ !Right peroneal - proximal !55.3 ! + +-----+ !Right peroneal - mid !47.6 ! + +-----+ !Right peroneal - distal !-32.4! + +-----+ !Right dorsal pedal !19.5 ! + +-----+ *Velocities are expressed in cm/s, Diameters are expressed in cm Prepared and Electronically Authenticated Vincent Santiago MD [id number]:57:55 Procedure Note John Santiago MD - 05/26/2024 [facility] Limited Lower Extremity Arterial Duplex Study Patient: Kailee Diaz Study ID: [id number] Gender: F : 1945 Age: 78 Race: GRACE Height 157.5cm Study Date: 05/26/2024 Weight: 50.8kg Access. #: [id number] *Referring Physician:Yvonne Tierney Mae Armer *Ordering Physician:* Yvonne Lopez *Nurse Epidemiologist:* Cyndee Oneill Indications: Peripheral arterial disease. Study data: Procedure: A vascular evaluation was performed with thepatient in the supine position. Imaged vessel(s): the right common iliac, right external iliac, right common femoral, right deep femoral, right femoral,right popliteal, right anterior tibial, right posterior tibial, and rightdorsal pedal arteries. Presentation case quality. Limited lower extremityarterial duplex study. Right lateral evaluation with ankle-brachial index andpulse volume recording. Birthdate: Patient birthdate: 1945. Age:Patient is 78year(s) old. Sex: gender: female. Height: 157.5cm. 62in. Weight: 50.8kg. : 112lb. Body mass index: BMI: 20.5kg/m^2. Bodysurface area: BSA: 1.49m^2. Study date: Study date: 05/26/2024. Study time:08:49 AM. Impressions Right lower extremity; Visuall, stent in proximal Femoeral artery appears patent. There is decreased velocity in distal Femoral artery and Poplitealartery suggesting a significant, more proximal stenosis. Tables: Arterial flow: + +-----+ !Location !V sys! + +-----+ !Right common femoral !123 ! + +-----+ !Right deep femoral - proximal !-63.8! + +-----+ !Right femoral - proximal !57.4 ! + +-----+ !Right femoral - mid !-78.5! + +-----+ !Right femoral - distal !-42.7! + +-----+ !Right popliteal - proximal !22.3 ! + +-----+ !Right popliteal - distal !27.9 ! + +-----+ !Right tibial trunk !415 ! + +-----+ !Right anterior tibial - proximal !27 ! + +-----+ !Right anterior tibial - mid !-15.8! + +-----+ !Right anterior tibial - distal !34.1 ! + +-----+ !Right posterior tibial - proximal!58.1 ! + +-----+ !Right posterior tibial - mid !52.5 ! + +-----+ !Right posterior tibial - distal !46.9 ! + +-----+ !Right peroneal - proximal !55.3 ! + +-----+ !Right peroneal - mid !47.6 ! + +-----+ !Right peroneal - distal !-32.4! + +-----+ !Right dorsal pedal !19.5 ! + +-----+ *Velocities are expressed in cm/s, Diameters are expressed in cm Prepared and Electronically Authenticated Vincent Santiago MD [id number]:57:55 us Yvonne Lopez CABLE DRILLER US ORDERABLES Final Result * US ANKLE PRESSURE INDEX (05/26/2024 9:00 AM PAVING SUPERVISOR) Anatomical Region Laterality Modality Lower Extremity Ultrasound 05/26/2024 8:13 AM PAVING SUPERVISOR Narrative 05/26/2024 9:58 AM PAVING SUPERVISOR [facility] Testing AR[place]ELLA Arterial Physiologic Evaluation Patient: Kailee Diaz Study ID: 1 Gender: F : 1945 Age: 78 Race: [facility] Height 157.5cm Study Date: 05/26/2024 Weight: 50.8kg Access. #: [id number] *Referring Physician:* Yvonne Lopez Mae Armer *Ordering Physician:Yvonne Tierney *Nurse Epidemiologist:* Cyndee Oneill Indications: Peripheral arterial disease. Study data: Study status: Routine. Procedure: A vascular evaluation was performed. Ankle and brachial pressures were indexed and Doppler waveforms obtained at the ankle. ARABELLA. Ankle-brachial index. Birthdate: Patient birthdate: 1945. Age: Patient is 78year(s) old. Sex: gender: female. Height: 157.5cm. 62in. Weight: 50.8kg. : 112lb. Body mass index: BMI: 20.5kg/m^2. Body surface area: BSA: 1.49m^2. Study date: Study date: 05/26/2024. Study time: 08:13 AM. Location: Vascular laboratory. Patient status: Outpatient. Impressions 1. Evidence of mild arterial insufficiency at rest, involving the right lower extremity. 2. No evidence of arterial insufficiency at rest, involving the left lower extremity. Arterial evaluation findings: Right: 1. Right ARABELLA: 0.87. This is consistent with mild arterial insufficiency at rest. 2. Continuous wave Doppler of the right leg vessels appears normally biphasic. 3. Right first digit pressure is below normal limits. 4. Digit photoplethysmography (PPG) demonstrates abnormal waveforms on the right. Left: 1. Left ARABELLA: 1.01. This is within the normal range at rest. 2. Continuous wave Doppler of the left leg vessels is appears normally triphasic. 3. Left first digit pressure is within normal limits. 4. Digit photoplethysmography (PPG) demonstrates abnormal waveforms on the left. Tables: Brachial pressures: +--------+ + + + ! !Right !Left !Max ! +--------+ + + + !Systolic!R(sys): 137mm Hg!L(sys): 135mm Hg!Max: 137mm Hg! +--------+ + + + Ankle brachial indices: +----+----+------+-----+-----+----+--------+----+---+-------+----+-----+-----+ !R PT!R DP!R Toe !R PT !R DP !R !Brachial!L PT!L !L Toe !L PT!L DP !L Toe! ! ! ! !index!index!Toe ! ! !DP ! !inde!index!index! ! ! ! ! ! !inde! ! ! ! !x ! ! ! ! ! ! ! ! !x ! ! ! ! ! ! ! ! +----+----+------+-----+-----+----+--------+----+---+-------+----+-----+-----+ !116 !119 !66mm !0.85 !0.87 !0.48!135mm Hg!111 !139!91mm Hg!0.81!1.01 !0.66 ! ! ! !Hg ! ! ! ! ! ! ! ! ! ! ! +----+----+------+-----+-----+----+--------+----+---+-------+----+-----+-----+ *Pressures are expressed in mm Hg Prepared and Electronically Authenticated Vincent Santiago MD [id number]:24 Procedure Note John Santiago MD - 05/26/2024 [facility] [place] Arterial Physiologic Evaluation Patient: Kailee Diaz Study ID: 1 Gender: F : 1945 Age: 78 Race: GRACE Height 157.5cm Study Date: 05/26/2024 Weight: 50.8kg Access. #: [id number] *Referring Physician:* Yvonne Lopez Mae Armer *Ordering Physician:* Yvonne Lopez *Nurse Epidemiologist:* Cyndee Oneill Indications: Peripheral arterial disease. Study data: Study status: Routine. Procedure: A vascular evaluationwas performed. Ankle and brachial pressures were indexed and Dopplerwaveforms obtained at the ankle. ARABELLA. Ankle-brachial index. Birthdate:Patient birthdate: 1945. Age: Patient is 78year(s) old. Sex: Birthgender: female. Height: 157.5cm. 62in. Weight: 50.8kg. : 112lb. Body massindex: BMI: 20.5kg/m^2. Body surface area: BSA: 1.49m^2. Study date:Study date: 05/26/2024. Study time: 08:13 AM. Location: Vascular laboratory. Patient status: Outpatient. Impressions 1. Evidence of mild arterial insufficiency at rest, involving the rightlower extremity. 2. No evidence of arterial insufficiency at rest, involving the leftlower extremity. Arterial evaluation findings: Right: 1. Right ARABELLA: 0.87. This is consistent with mild arterial insufficiencyat rest. 2. Continuous wave Doppler of the right leg vessels appears normally biphasic. 3. Right first digit pressure is below normal limits. 4. Digit photoplethysmography (PPG) demonstrates abnormal waveforms onthe right. Left: 1. Left ARABELLA: 1.01. This is within the normal range at rest. 2. Continuous wave Doppler of the left leg vessels is appears normally triphasic. 3. Left first digit pressure is within normal limits. 4. Digit photoplethysmography (PPG) demonstrates abnormal waveforms onthe left. Tables: Brachial pressures: +--------+ + + + ! !Right !Left !Max ! +--------+ + + + !Systolic!R(sys): 137mm Hg!L(sys): 135mm Hg!Max: 137mm Hg! +--------+ + + + Ankle brachial indices: +----+----+------+-----+-----+----+--------+----+---+-------+----+-----+-----+ !R PT!R DP!R Toe !R PT !R DP !R !Brachial!L PT!L !L Toe !L PT!L DP !LToe! ! ! ! !index!index!Toe ! ! !DP !!inde!index!index! ! ! ! ! ! !inde! ! ! ! !x ! !! ! ! ! ! ! !x ! ! ! ! ! ! !! +----+----+------+-----+-----+----+--------+----+---+-------+----+-----+-----+ !116 !119 !66mm !0.85 !0.87 !0.48!135mm Hg!111 !139!91mm Hg!0.81!1.01!0.66 ! ! ! !Hg ! ! ! ! ! ! ! ! ! !! +----+----+------+-----+-----+----+--------+----+---+-------+----+-----+-----+ *Pressures are expressed in mm Hg Prepared and Electronically Authenticated Vincent Santiago MD [id number] Yvonne Lopez [facility] ORDERABLES Final Result from Last 3 Months Insurance [employer] [id number] [facility] [email or web address] [facility] RX [employer] Medicare Part D Advance Directives For more information, please contact: [phone] * Full Code (Latest Code Status on File) Date Activated Date Inactivated Comments 06/11/2023 4:36 PM 06/12/2023 4:58 PM * Full Code Date Activated Date Inactivated Comments 06/09/2023 8:36 PM 06/11/2023 4:36 PM * Default Full Code - Needs Discussion Date Activated Date Inactivated Comments 06/09/2023 5:19 PM 06/09/2023 8:36 PM * Full Code Date Activated Date Inactivated Comments 08/06/2022 8:09 PM 08/08/2022 10:41 PM * Default Full Code - Needs Discussion Date Activated Date Inactivated Comments 08/06/2022 7:50 PM 08/06/2022 8:09 PM Care Teams Dressage Instructor Relationship Specialty Start Date End Date Joby Billy MD [address] [place] [address] PCP - General Family Practice 07/29/19
--- OUTSIDE RECORDS SUMMARY | 2024-05-26 15:28 | XMS_ITS ---
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 Past Plans No past plan information found. Radiation Treatments * No radiation treatments are documented for this patient in [facility]. Treatments may have been administered in another system. Lifetime Dose Tracking * Chemical Lifetime Dose Automatic Entry Manual Entr y DLP 1,733 mGycm 1,733 mGycm 0 mGycm
--- OUTSIDE RECORDS SUMMARY | 2024-05-26 15:28 | XMS_ITS | Clinical Summary ---
Author Organization [facility] Address [address] [place] [address] Care Team Providers Care Drafter Electronic Name Role Phone Jessica Silva MD Unavailable [phone] Joby Billy MD Primary Care Provider Shawn Lloyd MD Unavailable [phone] Allergies Active Allergy Reactions Criticality Noted Date Comments Duloxetine Itching Low 09/02/2019 Rosuvastatin Other (See comments) Low 11/04/2019 Myositis (elev CK) Shellfish Containing Products Swelling Medium Medications atorvastatin (LIPITOR) 10 mg tablet TAKE 1 TABLET AT BEDTIME. Active calcium carbonate-vitami n D3 1500 mg (600 mg elemental) -200 units per tablet daily. Act eleno losartan (COZAAR) 25 mg tablet daily. Active cranberry 500 mg capsule TAKE DIRECTED. Active rierk-9-vhl-epa- dpa-fish oil 1,050-1,200 mg capsule daily. Active multivitamin with iron tablet daily. Act eleno albuterol HFA (PROVENTIL HFA,VENTOLIN HFA,PROAIR HFA) 90 mcg/actuation inhaler Active budesonide-formo teroL (SYMBICORT) 160-4.5 mcg/actuation inhaler 2 times daily. Activ e traMADol (ULTRAM) 50 mg tablet 0 8 Active acetaminophen ER (TYLENOL) 650 mg 8 hr tablet Active gabapentin (NEURONTIN) 300 mg capsule 9 Active hydroCHLOROthiaz jose guadalupe (HYDRODIURIL) 25 mg tablet Take 25 mg by mouth daily 10/14/201 9 Active nitrofurantoin monohydrate (MACROBID) 100 mg capsule Take 100 mg by mouth 2 (two) times a day 9 Active omeprazole (PriLOSEC) 40 mg capsule 0 Active amLODIPine (NORVASC) 10 mg tablet Take 10 mg by mouth daily 9 Active rosuvastatin (CRESTOR) 5 mg tablet Take 5 mg by mouth daily 0 Active omega-3 fatty acids-fish oil 340-1,000 mg capsule Take 1 capsule by mouth daily Active multivitamin tablet Take 1 tablet by mouth daily Active clopidogreL (PLAVIX) 75 mg tablet Take 75 mg by mouth daily 0 Active calcium citrate-vitamin D3 (CITRACAL WITH D) 315 mg-6.25 mcg (250 unit) per tablet Take by mouth daily Active aspirin 81 mg enteric coated tablet Take 81 mg by mouth daily 0 Active lisinopril-hydro CHLOROthiazide (ZESTORETIC) 20-25 mg per tablet Take 1 tablet by mouth daily Active naloxone (NARCAN) 4 mg/actuation spray,non-aeroso l ADMINISTER A SINGLE SPRAY IN ONE NOSTRIL UPON SIGNS OF OPIOID OVERDOSE. CALL 911. REPEAT AFTER 3 MINUTES IF NO RESPONSE. 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 Surgical History Surgery Date Site/Laterality Comments BIOPSY DEEP BONE 05/17/2016 N/A Family History Medical History Relation Name Comments Cancer Father Cancer Mother Relation Name Status Comments Father Mother Social History Tobacco Use Types Packs/Day Years Used Date Smoking Tobacco: Former Smokeless Tobacco: Never Comments Unknown Sex and Gender Information Value Date Recorded Sex Assigned at Not on file Legal Sex Female 12:15 PM [employer] Gender Identity Female 12/21/2017 11:33 AM CDT Sexual Orientation Not on file Obstetrics History Last Filed Vital Signs Vital Sign Reading Time Taken Comments Blood Pressure 155/82 05/22/2022 1:28 PM [employer]NER Pulse 88 05/22/2022 1:28 PM [employer]NER Temperature 36.4 C (97.5 F) 05/22/2022 1:28 PM [employer]AL [employer]NER Respiratory Rate 18 05/22/2022 1:28 PM [employer]RB[employer]AL [employer]NER Oxygen Saturation 97% 05/22/2022 1:28 PM [employer]AL [employer]NER Inhaled Oxygen Concentration - - Weight 57.2 kg (126 lb) 05/22/2022 1:28 PM [employer]AL [employer]NER Height 162.6 cm (5' 4 ) 05/22/2022 1:28 PM [employer]AL [employer]NER Body Mass Index 21.63 05/22/2022 1:28 PM [employer]AL PL[employer]NER Plan of Treatment Health Maintenance Due Date Last Done Comments Depression Screening 1945 Fall Risk Assessment 1945 Hepatitis C Screening 1945 Osteoporosis Screening-Bone Density Scan 1945 DTaP/Tdap/Td Vaccine (1 - Tdap) 1956 Hepatitis B Screening 10/24/1963 Well Visit 65+ 2010 Zoster Vaccine (2 of 3) 04/06/2012 02/10/2012 Influenza Vaccine (#1) 2023 02/08/2019, 2017 Pneumococcal vaccine 65+ Completed 03/13/2014, 04/2010 Insurance [facility] AETNA MEDICARE GOLD IDPA [facility] CON [facility] REF AETNA MEDICARE GOLD Care Teams Drafter Electronic Relationship Specialty Start Date End Date Joby Blily MD PCP - General 04/10/20 Jessica Silva MD Referring Physician Pulmonary Disease 04/21/19 [place] [address] [id number] Referring Physician Cardiology 04/24/22
--- OUTSIDE RECORDS SUMMARY | 2024-05-26 15:28 | XMS_ITS | Encounter Summary ---
Author Organization [facility] Address [address] [place] [address] Care Team Providers Care Plate Driller Name Role Phone Joby Blily MD Primary Care Provider Reason for Visit * Reason Comments Follow Up PAD Encounter Details Date Type Department Care Team (Late st Contact Info) Description 05/26/2024 11:15 AM GRILL ATTENDANT Office Visit [facility] Heart and Vascular - [address] [facility] [address] [address] [facility] [address] [place] [address] [place] [address] [facility] [address] [place] [address] PAD (peripheral artery disease) (Primary Dx); Infrarenal abdominal aortic aneurysm (AAA) without rupture; Mixed hyperlipidemia; Essential hypertension Social History Tobacco Use Types Packs/Day Years [...] on file documented as of this encounter Last Filed Vital Signs Vital Sign Reading Time Taken Comments Blood Pressure 128/62 05/26/2024 9:34 AM GRILL ATTENDANT Pulse 68 05/26/2024 9:34 AM GRILL ATTENDANT Temperature - - Respiratory Rate - - Oxygen Saturation - - Inhaled Oxygen Concentration - - Weight 55.8 kg (123 lb) 05/26/2024 9:34 AM GRILL ATTENDANT Height 157.5 cm (5' 2 ) 05/26/2024 9:34 AM GRILL ATTENDANT Body Mass Index 22.5 05/26/2024 9:34 AM GRILL ATTENDANT documented in this encounter Progress Notes * Shawn Lloyd MD - 05/26/2024 10:50 AM CST Kailee Diaz : 1945 Age: 78 y.o. Interventional Cardiovascular/Endovascular Medicine Note Date: 05/26/2024 Patient's Primary Care Physician: Joby Billy MD Podiatry: Dr Dayo Calixto, DPMildred Indication: Advice and opinion regarding: PAD History of Present Illness: Through the courtesy of your referral I saw Kailee Diaz, in theoffice today in consultation. This is a 78 y.o. female with co morbidities as noted below and significant for prior tobacco use, history of lung cancer status post left partial pneumonectomy few years ago and is currently on remission hypertension, dyslipidemia, AAA who was evaluated by Dr. Calixto in 2019 during COVAL for critical limb ischemia. She was clinically diagnosed with critical limb ischemia by Dr. Calixto and subsequently underwent noninvasive arterial testing at [facility]. This showed severely reduced resting ABIs on the right at 0.4 with severely reduced toe pressures with a toe brachial index of 0.2. She underwent lower extremity angiography that showed an abdominal aortic aneurysm with no significant inflow disease. Her arteries were calcified with a partially thrombotic right popliteal artery occlusion. She underwent revascularization with catheter directed thrombolysis/thrombectomy followed by stenting of the right popliteal artery with 6 x 100 mm Absolute stent and was discharged home thesa day given the COVAL-19 environment. She then presented in August 2021 with critical limb ischemiaof the right lower extremity severe ischemic rest pain. She underwent lower extremity geography that showed a predominantly thrombotic in-stent occlusion however this time extending into the P3 popliteal segment that was severely calcified with diffuse disease. She underwent mechanical thrombectomywith a Rotarex and DCB angioplasty with a very good post result. The P3 popliteal however is densely calcified with diffuse disease. She then developed re occlusive disease from likely occlusive disease in the P3 popliteal segment. We were getting her worked up for considering a fem-tib bypass however presented acutely and after discussion with vascular surgery initially underwent Rt CFAE with profundaplasty in the absence of overt tissue loss. With persistent ischemic rest pain and a Rt hallux wound we opted for an endovascular strategy again at this time the P3 popliteal segment stented with Viabahn stent with stenting of the TPT She does have neuropathic symptoms in the right foot. No overt tissue loss or gangrene. Allergies Allergen Reactions Shellfish Containing Products Swelling Rosuvastatin Other (See Comments) Myositis (elev CK) Duloxetine Itching Medications: Current Outpatient Medications Medication Sig Dispense Refill rivaroxaban (Xarelto) 2.5 mg Tablet Take 1 tablet by mouth twice daily 180 Tablet 3 clobetasoL (TEMOVATE) 0.05 % Cream APPLY CREAM TOPICALLY TO RASH TWICE DAILY FOR UP TO 4 WEEKS, THEN A 2 WEEK BREAK (NO FACE); ONCE RESOLVED, THEN USE NEEDED. valACYclovir (VALTREX) 500 mg tablet TAKE 4 TABLETS BY MOUTH AT FIRST SIGN OF ATTACK, THEN TAKE 4 TABS 12 HOURS LATER. clopidogreL (PLAVIX) 75 mg Tablet Starting 08/06/23, Take 1 Tablet (75 mg) by mouth daily. 90 Tablet 3 estradioL (ESTRACE) 0.01% (0.1 mg/g) vaginal cream lisinopril-hydroCHLOROthiazide (ZESTORETIC) 20-25 mg tablet Take 1 Tablet by mouth daily. gabapentin (NEURONTIN) 100 mg capsule Take 100 mg by mouth 3 times daily. traMADoL (ULTRAM) 50 mg tablet Take 0.5 Tablets (25 mg) by mouth every 6 hours as needed for Pain. (Patient taking differently: Take 25 mg by mouth 3 times daily.) 15 Tablet 0 zvikvjfgjwl-grbcvxqzkekg-skrbaqjkjv (Trelegy Ellipta) 100-62.5-25 mcg Disk with Device Take 1 Puff by inhalation daily. rosuvastatin (CRESTOR) 20 mg tablet Take 1 Tablet (20 mg) by mouth daily. 90 Tablet 0 Cranberry 500 mg Capsule Take 500 mg by mouth daily. multivitamin (DAILY-PAULA) tablet Take 1 Tablet by mouth daily. calcium citrate-vitamin d3 (CITRACAL D MAX) 315 mg- 250 unit Tablet Take by mouth daily. omeprazole (PriLOSEC) 40 mg Capsule, Delayed Release(E.C.) Take 40 mg by mouth daily. albuterol HFA 90 mcg inhaler Take 2 Puffs by inhalation every 6 hours as needed for Shortness of Breath. Trelegy 100 mcg/ 625mcg/ 25 mcg 1 puff daily No current facility-administered medications for this visit. Past Medical History: Past Medical History: Diagnosis Date AAA (abdominal aortic aneurysm) Cancer ([facility]) 2016 LUNG COPD (chronic obstructive pulmonary disease) ([facility]) HTN (hypertension) Hyperlipidemia Osteoporosis PVD (peripheral vascular disease) Undiagnosed cardiac murmurs Past Surgical History: Procedure Laterality Date HX FEMORAL ENDARTERECTOMY Right 06/11/2023 RIGHT FEMORAL ENDARTERECTOMY AND PROFUNDOPLASY WITH BOVINE PERICARDIAL PATCH performed by Araceli Frankel MD at [facility] HX HIP REPLACEMENT Right HX KYPHOPLASTY [id number] HX LUNG SURGERY 2017 HX RECTAL PROLAPSE REPAIR Patient Active Problem List Diagnosis Code Essential hypertension I10 Dyslipidemia E78.5 H/O pneumonectomy Z98.890, Z90.2 Abdominal aortic aneurysm (AAA) without rupture I71.40 Venous insufficiency I87.2 Hypokalemia E87.6 Hyponatremia E87.1 Hyperlipidemia E78.5 Chronic obstructive pulmonary disease ([facility]) J44.9 Gastroesophageal reflux disease K21.9 History of tobacco abuse Z87.891 Peripheral vascular disease of lower extremity I73.9 Peripheral arterial disease I73.9 Protein-calorie malnutrition, moderate E44.0 PVD (peripheral vascular disease) I73.9 PAD (peripheral artery disease) I73.9 Family History: Family History Problem Relation Name Age of Onset Heart Disease Mother Lung Cancer Mother Other Mother Tobacco Use Other Father Tobacco Use Lung Cancer Father Lung Cancer Sister Other Sister Tobacco Use Social History: Social History Socioeconomic History Marital status: Spouse name: Not on file Number of children: Not on file Years of education: Not on file Highest education level: Not on file Occupational History Not on file Tobacco Use Smoking status: Former Current packs/day: 0.00 Types: Cigarettes Quit date: 2017 Years since quittin.1 Smokeless tobacco: Not on file Vaping Use Vaping status: Never Used Substance and Sexual Activity Alcohol use: Never Drug use: Never Sexual activity: Not on file Other Topics Concern Not on file Social History Narrative Not on file Social Drivers of Health Food Insecurity: No Food Insecurity (08/04/2023) Food Insecurity Patient needs follow up regarding:: No concerns Transportation Needs: No Transportation Needs (08/04/2023) Transportation Needs Patient needs follow up regarding:: No concerns Feeling Safe: Not At Risk (08/04/2023) Feeling Safe Patient has indicated abuse: : No Housing Stability: Low Risk (08/04/2023) Housing Stability Patient needs follow up regarding:: No concerns Physical exam: Vitals: 05/26/24 0934 BP: 128/62 BP Location: Right arm Patient Position (BP): Sitting Pulse: 68 Weight: 55.8 kg (123 lb) Height: 5' 2 (1.575 m) Pleasant, female in no acute distress Lungs: Unlaboured respiration. Clear to auscultation anteriorly. Diminished otherwise Cardiac: Heart sounds S1, S2 were regular. Abdomen: Soft non tender. Extremities: Right foot warm Vascular: Bilateral femoral were normal. Rt distal pulses not palpable Skin: No tissue loss or ulcers MS: Grossly unremarkable ? Data: No results for input(s): WBC , HGB , HCT in the last 72 hours. Invalid input(s): PLTCOUNT No results for input(s): BUN , CREATININE , GLUCOSE in the last 72 hours. Invalid input(s): SODIUM , POTASSIUM No results for input(s): BNP in the last 72 hours. No results for input(s): TROPONIN in the last 72 hours. Invalid input(s): MAGMGDL No results for input(s): LDLCALC , HDL in the last 72 hours. Invalid input(s): TRIG No results for input(s): TSH in the last 72 hours. No results for input(s): INR in the last 72 hours. Procedures Impression/Plan: ICD-10-CM ICD-9-CM 1. PAD (peripheral artery disease) I73.9 443.9 2. Infrarenal abdominal aortic aneurysm (AAA) without rupture I71.43 441.4 3. Mixed hyperlipidemia E78.2 272.2 4. Essential hypertension I10 401.9 She has had recurrent CLTI and has had multiple endovascular and surgical procedures as detailed above. Currently has a Viabahn Endo prosthesis extending from the mid SFA to the distal popliteal withstent in the TPT. I did review the follow-up testing that was done in the office today. Yet to be reported. The duplex imaging shows very low velocities in the distal popliteal with a high- grade stenosis in the TPT. This is suggesting impending occlusion of the endograft. Given the history of her recurrent presentations with acute limb ischemia and the above I am going to schedule her for lower extremity geography and endovascular intervention. We discussed the procedure the risks. Continue Plavix and Xarelto 2.5 mg that she has been on. Creatinine was 1.4. Will plan on IV fluid hydration prior to the procedure Since last seen she has once again gained weight. Happy with this. She is back on Crestor 20 mg daily. She does have an abdominal aortic aneurysm. Last measured 4.2 cm on her last CTA . Due for follow-up imaging in June/July. Wants to know if we could combine the imaging with CT of the chest as wellthat she was scheduled for follow-up of lung nodules. Her heart rate and blood pressure is well controlled. Continue Lisinopril She will continue to follow with Dr. Calixto her miller head wet process as scheduled Thank you for allowing me to participate in the care of your patient. Do not hesitate to call with question or concerns. ? Shawn Lloyd MD [facility] Interventional Cardiology Vascular/Endovascular Medicine [facility] ATTENDANT documented in this encounter Plan of Treatment Upcoming Encounters Date Type Department Care Team (Latest Contact Info) Description 05/31/2024 11:09 AM GRILL ATTENDANT Hospital Encounter [facility] Cardiac Lawn Caretaker [address] [place] [address] [place] [address] [facility] [address] [place] [address] PAD (peripheral artery disease) 05/31/2024 11:09 AM GRILL ATTENDANT - 05/31/2024 12:25 PM GRILL ATTENDANT Surgery [facility] Card[facility] Lawn Caretaker [address] [place] [address] [place] [address] [facility] [address] [place] [address] Aorta iliac femoral angiography documented as of this encounter Visit Diagnoses Diagnosis PAD (peripheral artery disease)- Primary Unspecified disorders of arteries and arterioles Infrarenal abdominal aortic aneurysm (AAA) without rupture Mixed hyperlipidemia Essential hypertension Unspecified essential hypertension PAD (peripheral artery disease) Unspecified disorders of arteries and arterioles PAD (peripheral artery disease) Unspecified disorders of arteries and arterioles documented in this encounter Care Teams Plate Driller Relationship Specialty Start Date End Date Joby Billy MD [address] [place] [id number] PCP - General Family Practice 07/29/19 documented as of this encounter
--- OUTSIDE RECORDS SUMMARY | 2024-05-26 15:28 | XMS_ITS | Encounter Summary ---
Author Organization [facility] Address [address] [place] [address] Care Team Providers Care Fitting Room Attendant Name Role Phone Joby Billy MD Primary Care Provider Encounter Details Date Type Department Care Team (Late st Contact Info) Description 05/26/[address] [facility] Heart and Vascular - [address] [facility] [address] [place] [address] Marge Bermudez, TINA Social History Tobacco Use Types Packs/Day Years [...] on file documented as of this encounter Plan of Treatment Upcoming Encounters Date Type Department Care Team (Latest Contact Info) Description 05/31/2024 11:09 AM FILM WASHER Hospital Encounter [facility] Cardiac [facility] Investig[facility] [address] [place] [address] [place] [address] [address] PAD (peripheral artery disease) 05/31/2024 11:09 AM FILM WASHER - 05/31/2024 12:25 PM FILM WASHER Surgery [facility] [address] [place] [address] [place] [address] [address] Aorta iliac femoral angiography documented as of this encounter Visit Diagnoses Not on filedocumented in this encounter Care Teams Fitting Room Attendant Relationship Specialty Start Date End Date Joby Billy MD [address] [place] [address] PCP - General Family Practice 07/29/19 documented as of this encounter
--- OUTSIDE RECORDS SUMMARY | 2024-05-26 15:28 | XMS_ITS | Referral Summary ---
Author Organization [facility] Address [address] [place] [address] Care Team Providers Care Wood Borer Name Role Phone Jessica Silva MD Unavailable [phone] Joby Billy MD Primary Care Provider Shawn Lloyd MD Unavailable [phone] Allergies Active Allergy Reactions Criticality Noted [...] cranberry 500 mg capsule TAKE DIRECTED. Active fwxuo-3-fls-epa- dpa-fish oil 1,050-1,200 mg capsule daily. 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 STRATEGIST Gender Identity Female 12/21/2017 11:33 AM CDT Sexual Orientation Not on file Last Filed Vital Signs Vital Sign Reading Time Taken Comments Blood Pressure 155/82 05/22/2022 1:28 PM INTERNET MARKETING STRATEGIST Pulse 88 05/22/2022 1:28 PM INTERNET MARKETING STRATEGIST Temperature 36.4 C (97.5 F) 05/22/2022 1:28 PM INTERNET MARKETING STRATEGIST Respiratory Rate 18 05/22/2022 1:28 PM INTERNET MARKETING STRATEGIST Oxygen Saturation 97% 05/22/2022 1:28 PM INTERNET MARKETING STRATEGIST Inhaled Oxygen Concentration - - Weight 57.2 kg (126 lb) 05/22/2022 1:28 PM INTERNET MARKETING STRATEGIST Height 162.6 cm (5' 4 ) 05/22/2022 1:28 PM INTERNET MARKETING STRATEGIST Body Mass Index 21.63 05/22/2022 1:28 PM INTERNET MARKETING STRATEGIST Plan of Treatment Not on file Insurance [facility] MEDICARE [facility] AETNA MEDICARE GOLD Care Teams Wood Borer Relationship Specialty Start Date End Date Joby Billy MD PCP - General 04/10/20 Jessica Silva MD Referring Physician Pulmonary Disease 04/21/19 [place] [address] [address] Referring Physician Cardiology 04/24/22
--- OUTSIDE RECORDS SUMMARY | 2024-05-26 15:28 | XMS_ITS | Encounter Summary ---
Author Organization [facility] Address [address] [place] [address] Care Team Providers Care Manager Reliability Name Role Phone Joby Billy MD Primary Care Provider Reason for Referral * Radiology Services (Routine) - Closed Specialty Diagnoses / Procedures Referred By Contac t Referred To Contact Diagnoses PAD (peripheral artery disease) Procedures US DUPLEX ARTERIAL LEG RIGHT Yvonne Lopez NP [facility] [address] [place] [address] Phone: tel: fax: Referral ID Status Reason Start Date Expiration Date Visits Re quested Visits Authorized [id number] Closed 02/11/2024 03/13/2025 1 1 AND WILDLIFE BIOLOGIST Reason for Visit * Auth/Cert (Routine) Specialty Diagnoses / Procedures Referred By Contac t Referred To Contact Radiology Yvonne Lopez NP NO ADDRESS ON FILE [facility] [address] [place] [address] Phone: tel: fax: Referral ID Status Reason Start Date Expiration Date Visits Re quested Visits Authorized [id number] 1 1 Encounter Details Date Type Department Care Team (Late st Contact Info) Description 05/26/2024 7:52 AM [facility] Hospital Encounter [facility] [place] [id number] [address] Yvonne Lopez NP NO ADDRESS ON FILE Arrived Social History Tobacco Use Types Packs/Day Years [...] (Latest Contact Info) Description 05/31/2024 11:09 AM FISH AND WILDLIFE BIOLOGIST Hospital Encounter On [facility] Cardiac Retail Assistant [address] [place] [address] [place] [address] [address] PAD (peripheral artery disease) 05/31/2024 11:09 AM FISH AND WILDLIFE BIOLOGIST - 05/31/2024 12:25 PM FISH AND WILDLIFE BIOLOGIST Surgery On License [facility] Cardiac Retail Assistant [address] [place] [address] [place] [address] [address] Aorta iliac femoral angiography documented as of this encounter Procedures Procedure Name Priority Date/Time Associated Diagnosis Comments US DUPLEX ARTERIAL LEG RIGHT Routine 05/26/2024 9:50 AM FISH AND WILDLIFE BIOLOGIST PAD (peripheral artery disease) documented in this encounter Results * US DUPLEX ARTERIAL LEG RIGHT (05/26/2024 9:50 AM FISH AND WILDLIFE BIOLOGIST) Anatomical Region Laterality Modality Lower Extremity Ultrasound 05/26/2024 8:49 AM FISH AND WILDLIFE BIOLOGIST Narrative 05/26/2024 9:58 AM FISH AND WILDLIFE BIOLOGIST [facility] Limited Lower Extremity Arterial Duplex Study Patient: Kailee Diaz Study ID: [id number] Gender: F : 1945 Age: 78 Race: [facility] Height 157.5cm Study Date: 05/26/2024 Weight: 50.8kg Access. #: [id number] *Referring Physician:* Yvonne Lopez Mae Armer *Ordering Physician:* Yvonne Lopez *Cuff Turner Machine Operator:* Cyndee Oneill Indications: Peripheral arterial disease. Study [...] Prepared and Electronically Authenticated Vincent Santiago MD [id number] Procedure Note John Santiago MD - 05/26/2024 [facility] Limited Lower Extremity Arterial Duplex Study Patient: Kailee Diaz Study ID: [id number] Gender: F : 1945 Age: 78 Race: CAU Height 157.5cm Study Date: 05/26/2024 Weight: 50.8kg Access. #: [id number] *Referring Physician:* Yvonne Lopez Mae Armer *Ordering Physician:* Yvonne Lopez *Cuff Turner Machine Operator:Cyndee Blanc Indications: Peripheral arterial disease. Study data: Procedure: [...] Prepared and Electronically Authenticated Vincent Santiago MD [id number]:55 Yvonne Lopez TOMBSTONE ERECTOR US ORDERABLES Final Result documented in this encounter Visit Diagnoses Diagnosis PAD (peripheral artery disease) Unspecified disorders of arteries and arterioles PAD (peripheral artery disease) Unspecified disorders of arteries and arterioles PAD (peripheral artery disease) Unspecified disorders of arteries and arterioles documented in this encounter Care Teams Manager Reliability Relationship Specialty Start Date End Date Joby Billy MD [address] [place] [address] PCP - General Family Practice 07/29/19 documented as of this encounter
--- OUTSIDE RECORDS SUMMARY | 2024-05-26 15:28 | XMS_ITS | Encounter Summary ---
Author Organization [facility] Address [address] [place] [address] Care Team Providers Care Panel Coverer Name Role Phone Joby Billy MD Primary Care Provider Reason for Referral * Radiology Services (Routine) - Closed Specialty Diagnoses / Procedures Referred By Contac t Referred To Contact Diagnoses PAD (peripheral artery disease) Procedures US ANKLE PRESSURE INDEX Yvonne Lopez NP [facility] [address] [address] Phone: tel: fax: Referral ID Status Reason Start Date Expiration Date Visits Re quested Visits Authorized [id number] Closed 02/11/2024 03/13/2025 1 1 SPECIALIST Reason for Visit * Auth/Cert (Routine) Specialty Diagnoses / Procedures Referred By Contac t Referred To Contact Radiology Yvonne Lopez NP NO ADDRESS ON FILE [facility] [address] [place] [address] Phone: tel: fax: Referral ID Status Reason Start Date Expiration Date Visits Re quested Visits Authorized [id number] 1 1 Encounter Details Date Type Department Care Team (Late st Contact Info) Description 05/26/2024 7:51 AM [facility] Hospital Encounter [facility] [address] [address] Yvonne Lopez NP NO ADDRESS ON FILE [...] (Latest Contact Info) Description 05/31/2024 11:09 AM DATA SPECIALIST Hospital Encounter [facility] Cardiac Stone Cleaner [address] [place] [address] [place] [address] [address] PAD (peripheral artery disease) 05/31/2024 11:09 AM DATA SPECIALIST - 05/31/2024 12:25 PM DATA SPECIALIST Surgery [facility] Cardiac Stone Cleaner [address] [place] [address] [place] [address] [address] Aorta iliac femoral angiography documented as of this encounter Procedures Procedure Name Priority Date/Time Associated Diagnosis Comments US ANKLE PRESSURE INDEX Routine 05/26/2024 9:00 AM DATA SPECIALIST PAD (peripheral artery disease) documented in this encounter Results * US ANKLE PRESSURE INDEX (05/26/2024 9:00 AM DATA SPECIALIST) Anatomical Region Laterality Modality Lower Extremity Ultrasound 05/26/2024 8:13 AM DATA SPECIALIST Narrative 05/26/2024 9:58 AM DATA SPECIALIST [facility] AR[facility]ELLA Arterial Physiologic Evaluation Patient: Kailee Diaz Study ID: 1 Gender: F : 1945 Age: 78 Race: [facility] Height 157.5cm Study Date: 05/26/2024 Weight: 50.8kg Access. #: [id number] *Referring Physician:* Yvonne Lopez Mae Armer *Ordering Physician:* Yvonne Lopez *Email Administrator:* Cyndee Oneill Indications: Peripheral arterial disease. Study [...] Prepared and Electronically Authenticated Vincent Santiago MD [id number] Procedure Note John Santiago MD - 05/26/2024 [facility] ARABELLA Arterial Physiologic Evaluation Patient: Kailee Diaz Study ID: 1 Gender: F : 1945 Age: 78 Race: GRACE Height 157.5cm Study Date: 05/26/2024 Weight: 50.8kg Access. #: [id number] *Referring Physician:* Yvonne Lopez Mae Armer *Ordering Physician:Yvonne Tierney *Email Administrator:* Cyndee Oneill Indications: Peripheral arterial disease. Study [...] Prepared and Electronically Authenticated Vincent Santiago MD [id number]:24 Yvonne Lopez NP US ORDERABLES Final Result documented in this encounter Visit Diagnoses Diagnosis PAD (peripheral artery disease) Unspecified disorders of arteries and arterioles PAD (peripheral artery disease) Unspecified disorders of arteries and arterioles PAD (peripheral artery disease) Unspecified disorders of arteries and arterioles documented in this encounter Care Teams Panel Coverer Relationship Specialty Start Date End Date Joby Billy MD [address] [place] [address] PCP - General Family Practice 07/29/19 documented as of this encounter
--- OUTSIDE RECORDS SUMMARY | 2024-05-26 15:28 | XMS_ITS | Encounter Summary ---
Author Organization [facility] Address [address] [place] [address] Care Team Providers Care Figure Refinisher And Repairer Name Role Phone Joby Billy MD Primary Care Provider Reason for Visit * Reason Onset Date Comments Cards w/u prior to bypass? 06/10/2023 LEFT SECURE [facility]AY [facility] / [facility] Vascular eval for bypass 06/10/2023 SPOKE W ITH [facility] / [facility] Encounter Details Date Type Department Care Team (Late st Contact Info) Description 06/10/2023 Telephone [facility] Admitting [address] [place] [address] [place] [address] [address] Cards w/u prior to bypass? (LEFT SECURE [facility]AY [place] / [facility]); Vascular eval for bypass (SPOKE WITH ARELI / [facility] OFF[facility]) Social History Tobacco Use Types Packs/Day Years Used Date Smoking Tobacco: Former Cigarettes Q uit: 2017 Alcohol Use Standard Drinks/Week Comments Never 0 (1 standard drink = 0.6 oz pur e alcohol) Feeling Safe Answer Date Recorded Are you in a relationship wi th someone who hurts you emotionally and/or physically? No 06/09/2023 Food Insecurity Answer Date Recorded Social/Environmental Concerns [...] (Latest Contact Info) Description 05/31/2024 11:09 AM MANAGER RAIL Hospital Encounter [facility] Cardiac Toe Trimmer [address] [place] [address] [place] [address] [address] PAD (peripheral artery disease) 05/31/2024 11:09 AM MANAGER RAIL - 05/31/2024 12:25 PM MANAGER RAIL Surgery [facility] Cardiac Toe Trimmer [address] [place] [address] [place] [address] [address] Aorta iliac femoral angiography documented as of this encounter Visit Diagnoses Not on filedocumented in this encounter Care Teams Figure Refinisher And Repairer Relationship Specialty Start Date End Date Joby Billy MD [address] [place] [address] PCP - General Family Practice 07/29/19 documented as of this encounter
== END 2024-05-26 15:23 | disposition home or self-care (01) ==
LOC: ANHIMG 15:23
PROVIDERS: PCP Family Medicine; Visit Provider Family Medicine
DX: Z12.31 Encounter for screening mammogram for malignant neoplasm of breast (principal)
CPT/HCPCS: 77063; 77067

== ENCOUNTER 2024-08-03 07:03 | Outpatient (CLI) | payer MEDICARE, SELFPAY ==
--- NOTE | ~2024-08-03 | CT_ITS ---
Clinical Indication: Abdominal aortic aneurysm CT Scan of the Chest, Abdomen, and Pelvis without Contrast: Technique: Contiguous sections were acquired throughout the chest, abdomen, and pelvis without IV con trast administration. Dose reduction technique was used on this scan by utilizing automated exposure control and iterative reconstruction technique. The dose-length product (DLP) was 339.67 mGy-cm. Comparison: 01/12/2023 Findings: There is no evidence of any significant mediastinal, hilar or axillary lymphadenopathy. There are ext ensive atherosclerotic calcifications of the thoracic aorta and coronary arteries. There is no evidence of pleural or pericardial effusion. Status post left upper lobectomy. There is moderate right upper lobe emphysema. The liver, spleen, pancreas, gallbladder, adrenals and kidneys are within normal limits. Infrarenal a bdominal aortic aneurysm measures up to 5.7 cm in maximum diameter. There are extensive atherosclerot ic calcifications of the aorta and iliac vessels. No lymphadenopathy. Small hiatal hernia noted. No bowel obstruction or bowel wall thickening. There is no evidence to sug gest acute appendicitis. Urinary bladder is unremarkable. No pelvic mass evident. No ascites. Numerous prior vertebroplasty's in the thoracic and lumbar spine are stable from prior exam. Impression: 5.7 cm infrarenal abdominal aortic aneurysm, increased from prior exam. Small hiatal hernia. Additional chronic changes, as noted above. Reviewed, dictated and finalized at [facility]. Impression: 5.7 cm infrarenal abdominal aortic aneurysm, increased from prior exam. Small hiatal hernia. Additional chronic changes, as noted above.
--- OUTSIDE RECORDS SUMMARY | 2024-08-03 07:08 | XMS_ITS | Encounter Summary ---
Author Organization [facility] Address [address] [place] [address] Care Team Providers Care Lab Tester Name Role Phone Joby Billy MD Primary Care Provider Reason for Visit * Reason Onset Date Comments Cards w/u prior to bypass? 06/10/2023 LEFT SECURE JAY [facility]GAS / [facility] Vascular eval for bypass 06/10/2023 SPOKE W ITH ARELI / [facility] Encounter Details Date Type Department Care Team (Late st Contact Info) Description 06/10/2023 Telephone [facility] Admitting [address] [place] [address] [place] [address] [address] Cards w/u prior to bypass? [...] Upcoming Encounters Date Type Department Care Team (Late st Contact Info) Description 10/06/2024 8:15 AM CDT Office Visit [facility]3] Heart and Vascular - [address] [facility] 300 [address] [facility] [address] [place] [address] [place] [address] [facility] [address] [place] [address] documented as of this encounter Visit Diagnoses Not on filedocumented in this encounter Care Teams Lab Tester Relationship Specialty Start Date End Date Joby Billy MD [address] [place] [address] PCP - General Family Practice 07/29/19 documented as of this encounter
--- OUTSIDE RECORDS SUMMARY | 2024-08-03 07:08 | XMS_ITS | Referral Summary ---
Author Organization [facility] Address [address] [place] [address] Care Team Providers Care Hamper Maker Machine Name Role Phone Jessica Silva MD Unavailable [phone] Joby Billy MD Primary Care Provider Shawn Lloyd MD Unavailable [phone] Allergies Active Allergy Reactions Criticality Noted Date [...] cranberry 500 mg capsule TAKE DIRECTED. Active owhlz-[id number]-eeu-epa- dpa-fish oil 1,050-1,200 mg capsule daily. Active [...] on file Legal Sex Female 12:15 PM MOLD SHOP SUPERVISOR Gender Identity Female 12/21/2017 11:33 AM CDT Sexual Orientation Not on file Last Filed Vital Signs Vital Sign Reading Time Taken Comments Blood Pressure 155/82 05/22/2022 1:28 PM MOLD SHOP SUPERVISOR Pulse 88 05/22/2022 1:28 PM MOLD SHOP SUPERVISOR Temperature 36.4 C (97.5 F) 05/22/2022 1:28 PM MOLD SHOP SUPERVISOR Respiratory Rate 18 05/22/2022 1:28 PM MOLD SHOP SUPERVISOR Oxygen Saturation 97% 05/22/2022 1:28 PM MOLD SHOP SUPERVISOR Inhaled Oxygen Concentration - - Weight 57.2 kg (126 lb) 05/22/2022 1:28 PM MOLD SHOP SUPERVISOR Height 162.6 cm (5' 4 ) 05/22/2022 1:28 PM MOLD SHOP SUPERVISOR Body Mass Index 21.63 05/22/2022 1:28 PM MOLD SHOP SUPERVISOR Plan of Treatment Not on file Insurance [facility] MEDICARE [facility] AETNA MEDICARE GOLD Care Teams Hamper Maker Machine Relationship Specialty Start Date End Date Joby Billy MD PCP - General 04/10/20 Jessica Silva MD Referring Physician Pulmonary Disease 04/21/19 [place] [address] [address] Referring Physician Cardiology 04/24/22
--- OUTSIDE RECORDS SUMMARY | 2024-08-03 07:08 | XMS_ITS | Clinical Summary ---
Author Organization [facility] Address [address] [place] [address] Care Team Providers Care Storage Facility Rental Clerk Name Role Phone Jessica Silva MD Unavailable [phone] Joby Billy MD Primary Care Provider Shawn Lloyd MD Unavailable [phone] Allergies Active Allergy Reactions Criticality Noted [...] cranberry 500 mg capsule TAKE DIRECTED. Active hubbe-7-lwo-epa- dpa-fish oil 1,050-1,200 mg capsule daily. Active [...] on file Legal Sex Female 12:15 PM VERMIN EXTERMINATOR Gender Identity Female 12/21/2017 11:33 AM CDT Sexual Orientation Not on file Obstetrics History Last Filed Vital Signs Vital Sign Reading Time Taken Comments Blood Pressure 155/82 05/22/2022 1:28 PM VERMIN EXTERMINATOR Pulse 88 05/22/2022 1:28 PM VERMIN EXTERMINATOR Temperature 36.4 C (97.5 F) 05/22/2022 1:28 PM VERMIN EXTERMINATOR Respiratory Rate 18 05/22/2022 1:28 PM VERMIN EXTERMINATOR Oxygen Saturation 97% 05/22/2022 1:28 PM VERMIN EXTERMINATOR Inhaled Oxygen Concentration - - Weight 57.2 kg (126 lb) 05/22/2022 1:28 PM VERMIN EXTERMINATOR Height 162.6 cm (5' 4 ) 05/22/2022 1:28 PM VERMIN EXTERMINATOR Body Mass Index 21.63 05/22/2022 1:28 PM VERMIN EXTERMINATOR Plan of Treatment Health Maintenance Due Date Last Done Comments Depression Screening 1945 Fall Risk Assessment 1945 Hepatitis C Screening 1945 Osteoporosis Screening-Bone Density Scan 1945 DTaP/Tdap/Td Vaccine (1 - Tdap) 1956 Hepatitis B Screening 10/24/1963 Well Visit 65+ 2010 Zoster Vaccine (2 of 3) 04/06/2012 02/10/2012 Influenza Vaccine (Season Ended) 2024 02/09/20 19, 01/11/2018 Pneumococcal vaccine 65+ Completed 03/13/2014, 04/2010 Insurance [facility] AETNA MEDICARE GOLD [place] [facility] CON [facility] REF TNA MEDICARE GOLD Care Teams Storage Facility Rental Clerk Relationship Specialty Start Date End Date Joby Billy MD PCP - General 04/10/20 Jessica Silva MD Referring Physician Pulmonary Disease 04/21/19 [place] [address] [address] Referring Physician Cardiology 04/24/22
--- OUTSIDE RECORDS SUMMARY | 2024-08-03 07:08 | XMS_ITS | Clinical Summary ---
Author Organization [employer] [address] [place] [address] [address] [place] [address] Care Team Providers Care Trail Construction Worker Name Role Phone Joby Billy MD Primary [...] differently:25 mg OralTHREE TIMES DAILY, Reported on 05/31/2024 lisinopril-hydr oCHLOROthiazide (ZESTORETIC) 20-25 mg tablet Take [...] Vascular Care - Dr. Shawn Lloyd MD, [facility], [facility] Heart and Vascular - [address] [facility] [address] Dayo Calixto, DPM Cardiothoracic Surgery - [...] Date Diagnosed Date Resolved Date Atherosclerosis of elim ira ar dalila of right lower extremity with rest pain 08/07/2022 Critical limb ischemia of ri ght lower extremity 08/07/2022 05/26/2024 Encounters Date Type Department Care Team Description 07/07/2024 Telephone [facility] Heart and Vascular - [address] [facility] [address] [address] [facility] [address] [place] [address] Shawn Lloyd MD reschedle appt 07/06/2024 Results Follow-Up [facility] - [address] [facility] [address] [address] [facility] [address] [place] [address] Shawn Lloyd MD US ANKLE PRESSURE INDEX 07/04/2024 7:29 AM CDT - 07/04/2024 11:59 PM T Hospital Encounter [facility] [address] [facility] [address] [place] [address] Shawn Lloyd MD Discharge Disposition: Home or Self Care 07/04/2024 7:15 AM CDT - 07/04/2024 11:59 PM T Hospital Encounter [facility] [address] [facility] [address] [place] [address] Shawn Lloyd MD Discharge Disposition: Home or Self Care 06/21/2024 External Device Data STL ABSTRACTION Provider, Abstract 06/21/2024 External Device Data STL ABSTRACTION Provider, Abstract 06/07/2024 External Device Data STL ABSTRACTION Provider, Abstract 05/31/2024 9:30 AM MEASUREMENT PSYCHOLOGIST - 05/31/2024 10:46 AM [facility] Surgery [facility] [address] [place] [address] Shawn Lloyd MD Aorta iliac femoral angiography 05/31/2024 8:20 AM MEASUREMENT PSYCHOLOGIST - 05/31/2024 4:05 PM MEASUREMENT PSYCHOLOGIST Hospital Encounter [facility] [place] [address] [place] [address] Shawn Lloyd MD PAD (peripheral artery disease) Discharge Disposition: Home or Self Care 05/31/2024 Telephone [facility] - [address] [place] [address] Shawn Lloyd MD 05/31 post AIF intervention needs post testing and f/u call 05/26/2024 11:15 AM MEASUREMENT PSYCHOLOGIST Office Visit [facility] Heart [facility] - [address] [facility] [address] [place] [address] Shawn Lloyd MD PAD (peripheral artery disease) (Primary Dx); Infrarenal abdominal aortic aneurysm (AAA) without rupture; Mixed hyperlipidemia; Essential hypertension 05/26/2024 7:52 AM MEASUREMENT PSYCHOLOGIST - 05/26/2024 11:59 PM MEASUREMENT PSYCHOLOGIST Hospital Encounter [facility] [address] [place] [address] Yvonne Lopez NP Discharge Disposition: Home or Self Care 05/26/2024 7:51 AM MEASUREMENT PSYCHOLOGIST - 05/26/2024 11:59 PM MEASUREMENT PSYCHOLOGIST Hospital Encounter [facility] [address] [facility] [address] [place] [address] Yvonne Lopez NP Discharge Disposition: Home or Self Care 05/26/2024 Telephone [facility] - [address] [facility] [address] [place] [address] Shawn Lloyd MD 05/26 AIF scheduled for 05/31 mm/at 05/26/2024 Prep for Surgery [facility] Heart [facility]ascular - [address] [place] [address] Marge Bermudez RN 05/05/2024 External Device Data STL ABSTRACTION Provider, Abstract from Last 3 Months Immunizations Immunization Administration [...] who hurts you emotionally and/or physically? No 05/31/2024 Food Insecurity Answer Date Recorded Social/Environmental Concerns [...] Sign Reading Time Taken Comments Blood Pressure 135/75 05/31/2024 3:48 PM MEASUREMENT PSYCHOLOGIST Pulse 64 05/31/2024 12:21 PM MEASUREMENT PSYCHOLOGIST Temperature 37.2 C (98.9 F) 05/31/2024 8:39 AM MEASUREMENT PSYCHOLOGIST Respiratory Rate 14 05/31/2024 3:30 PM MEASUREMENT PSYCHOLOGIST Oxygen Saturation 100% 05/31/2024 12:21 PM MEASUREMENT PSYCHOLOGIST Inhaled Oxygen Concentration - - Weight 55.3 kg (122 lb) 05/31/2024 8:39 AM MEASUREMENT PSYCHOLOGIST Height 157.5 cm (5' 2 ) 05/31/2024 8:39 AM MEASUREMENT PSYCHOLOGIST Body Mass Index 22.31 05/31/2024 8:39 AM MEASUREMENT PSYCHOLOGIST Plan of Treatment Upcoming Encounters Date Type Department Care Team (Late st Contact Info) Description 10/06/2024 8:15 AM CDT Office Visit [facility] Heart and Vascular - [address] [facility] [address] [place] [address] [place] [address] [facility] [address] [place] [address] Health Maintenance Due Date Last Done Comments DTAP/TDAP/TD VACCINES (1 - Tdap) 1964 PNEUMOCOCCAL VACCINE 50+ YEA RS (1 of 2 - PCV) 1964 ZOSTER VACCINE (1 of 2) 10/24/1995 OSTEOPOROSIS SCREENING 2010 RSV VACCINE (60+ or ) (1 - 1-dose 75+ series) 2020 INFLUENZA VACCINE (#1) 2023 COVID-19 Vaccine ( season) 2023 02/03/2021, 07/04/2020, 06/06/2020 Medical Devices Implanted Type Area Anesthesia Resident Device Identifier Shelf Expiration Date Model / Serial / Lot Atomic Process Engineer Clip Surgiclip Ii Luis Enrique 11.5in [id number] - [id number] Implanted:Qt y: 1 on 06/11/2023 by Araceli Frankel MD at [facility] Right: Groin [employer] - COVIDIEN 10/11/2027 [id number] / / Atomic Process Engineer Clip Surgiclip Iii Ti Luis Enrique Sm 9in [id number] - [id number] Implanted:Qt y: 1 on 06/11/2023 by Araceli Frankel MD at [facility] Right: Groin [employer] - COVIDIEN 01/11/2028 [id number] / / [id number] Dev Closure Angioseal 6fr Vip [id number] - [id number] Implanted:Qt y: 1 on 08/08/2022 at [facility] Closure Device Left: Groin [facility] 04/12/2023 [id number] / / [id number] 65 Patch Vascu-Guard 0.8x8cm Cardio Vg-0108 - [id number] Implanted:Qt y: 1 on 06/11/2023 by Araceli Frankel MD at [facility] Right: Groin [employer] 12/25/2023 [id number] / / [id number] R Pop Stent Abslt Pv [id number] 08/03/2019 Implanted:Qt y: 1 on 08/03/2019 by Shawn Lloyd MD Stent Right: Popliteal Artery LOU- VASC DEVICE [id number] 09/10/2021 [id number] 100 / / [id number] Description:Absolute Pro 6.0 x 100 mm-R popliteal R Sfa Stent Abslt Pv [id number] /22/2020 Implanted:Qt y: 1 on 08/03/2019 by Shawn Lloyd MD Stent Right: Popliteal Artery LOU- VASC DEVICE [id number] 11/10/2020 [id number] 60 / / [id number] Description:Absolute Pro 6.0 x 60 mm-R SFA Stent Vasc Louise [id number] - [id number] Implanted:Qt y: 1 on 08/08/2022 at [facility] Stent Right: Leg [employer] 04/30/2023 [id number] / / [id number] Stent Vasc Louise [id number] - [id number] Implanted:Qt y: 1 on 08/08/2022 at [facility] Stent Right: Leg [employer] 05/01/2024 [id number] / / [id number] Stent Viabahn Hep [id number] [id number] - [id number] Implanted:Qt y: 1 on 08/04/2023 at [facility] Stent Right: Leg [employer] 01/21/2024 [id number] / [id number] / Stent Synergy Xd 3.5x48mm Evrlms Elut [id number] - [id number] Implanted:Qt y: 1 on 08/04/2023 at [facility] Stent Right: Leg [employer] 02/15/2025 [id number] / / [id number] Stent Vasc Louise [id number] - [id number] Implanted:Qt y: 1 on 08/04/2023 at [facility] Stent Right: Leg [employer] 04/23/2024 [id number] / / [id number] Stent Vasc Louise [id number] 410 - [id number] Implanted:Qt y: 1 on 08/04/2023 at [facility] Stent Right: Leg [employer] 05/01/2024 [id number] / / [id number] Stent Viabahn Hep 0fvw4bj [id number] - [id number] Implanted:Qt y: 1 on 05/31/2024 by Shawn Lloyd MD at [facility] Stent Right: Leg [employer] [id number] 12/22/2026 [id number] 02A / [id number] / [id number] Stent Synergy Xd 4.0x48mm Evrlms Elut [id number] 00 - [id number] Implanted:Qt y: 1 on 05/31/2024 by hSawn Lloyd MD at [facility] Stent Right: Leg [employer] [id number] 11/08/2025 [id number] / / [id number] Procedures Procedure Name Priority Date/Time Associated Diagnosis Comments US DUPLEX ARTERIAL LEG RIGHT Routine 07/04/2024 8:33 AM CDT Peripheral arterial disease US ANKLE PRESSURE INDEX Routine 07/04/2024 8:22 AM CDT Peripheral arterial disease TELEMETRY REPORT 06/07/2024 3:32 PM MEASUREMENT PSYCHOLOGIST POC ACTIVATED CLOTTING TIME Routine 05/31/2024 11:47 AM MEASUREMENT PSYCHOLOGIST IVUS-NON CORONARY INTRAVASCULAR Routine 05/31/2024 10:59 AM MEASUREMENT PSYCHOLOGIST PAD (peripheral artery disease) PERIPHERAL ARTERY INTERVENTION Routine 05/31/2024 10:59 AM MEASUREMENT PSYCHOLOGIST PAD (peripheral artery disease) AORTA ILIAC FEMORAL ANGIOGRAPHY Routine 05/31/2024 10:59 AM MEASUREMENT PSYCHOLOGIST PAD (peripheral artery disease) POC ACTIVATED CLOTTING TIME Routine 05/31/2024 10:36 AM MEASUREMENT PSYCHOLOGIST POC ACTIVATED CLOTTING TIME Routine 05/31/2024 9:51 AM MEASUREMENT PSYCHOLOGIST BASIC METABOLIC PANEL Routine 05/26/2024 3:03 PM MEASUREMENT PSYCHOLOGIST Peripheral arterial disease CBC WITH DIFFERENTIAL Routine 05/26/2024 3:03 PM MEASUREMENT PSYCHOLOGIST Essential hypertension US DUPLEX ARTERIAL LEG RIGHT Routine 05/26/2024 9:50 AM MEASUREMENT PSYCHOLOGIST PAD (peripheral artery disease) US ANKLE PRESSURE INDEX Routine 05/26/2024 9:00 AM MEASUREMENT PSYCHOLOGIST PAD (peripheral artery disease) from Last 3 Months Results * US DUPLEX ARTERIAL LEG RIGHT (07/04/2024 8:33 AM CDT) Only the most recent of2 resultswithin the time period is included. Anatomical Region Laterality Modality Lower Extremity Ultrasound 07/04/2024 7:58 AM CDT Narrative 07/04/2024 10:52 AM CDT [facility] Limited Lower Extremity Arterial Duplex Study Patient: Kailee Diaz Study ID: [id number] Gender: F : 1945 Age: 78 Race: CAU Height 157.5cm Study Date: 07/04/2024 Weight: 55.3kg Access. #: [id number] *Referring Physician:* Shawn Lloyd M.D. *Ordering Physician:* Shawn Lloyd M.D. *Heating Mechanic:* Carlos Ozuna Indications: Peripheral arterial disease. Study data: Procedure: [...] Sex: gender: female. Height: 157.5cm. 62in. Weight: 55.3kg. : 122lb. Body mass index: BMI: 22.3kg/m^2. Body surface area: BSA: 1.56m^2. Study date: Study date: 07/04/2024. Study time: 07:58 AM. Impressions Right lower extremity: Mild peripheral artery disease is present. Tables: Arterial flow: + +-----+ !Location !V sys! + +-----+ !Right common femoral !116 ! + +-----+ !Right deep femoral - proximal !107 ! + +-----+ !Right femoral - proximal !62.7 ! + +-----+ !Right femoral - mid !132 ! + +-----+ !Right femoral - distal !-40.8! + +-----+ !Right popliteal - proximal !45.9 ! + +-----+ !Right anterior tibial - proximal !-73.2! + +-----+ !Right anterior tibial - mid !27.4 ! + +-----+ !Right anterior tibial - distal !47.2 ! + +-----+ !Right posterior tibial - proximal!26.8 ! + +-----+ !Right posterior tibial - mid !32.5 ! + +-----+ !Right posterior tibial - distal !71.9 ! + +-----+ !Right peroneal - proximal !88.9 ! + +-----+ !Right peroneal - mid !92.5 ! + +-----+ !Right peroneal - distal !-84.8! + +-----+ *Velocities are expressed in cm/s, Diameters are expressed in cm Prepared and Electronically Authenticated Vincent Santiago MD [id number]:00 Procedure Note John Santiago MD - 07/04/2024 [facility] Limited Lower Extremity Arterial Duplex Study Patient: Kailee Diaz Study ID: [id number] Gender: F : 1945 Age: 78 Race: CAU Height 157.5cm Study Date: 07/04/2024 Weight: 55.3kg Access. #: [id number] *Referring Physician:* Shawn Lloyd M.D. *Ordering Physician:* Shawn Lloyd M.D. *Heating Mechanic:* Carlos Ozuna Indications: Peripheral arterial disease. Study data: Procedure: [...] Sex: gender: female. Height: 157.5cm. 62in. Weight: 55.3kg. : 122lb. Body mass index: BMI: 22.3kg/m^2. Bodysurface area: BSA: 1.56m^2. Study date: Study date: 07/04/2024. Study time:07:58 AM. Impressions Right lower extremity: Mild peripheral artery disease is present. Tables: Arterial flow: + +-----+ !Location !V sys! + +-----+ !Right common femoral !116 ! + +-----+ !Right deep femoral - proximal !107 ! + +-----+ !Right femoral - proximal !62.7 ! + +-----+ !Right femoral - mid !132 ! + +-----+ !Right femoral - distal !-40.8! + +-----+ !Right popliteal - proximal !45.9 ! + +-----+ !Right anterior tibial - proximal !-73.2! + +-----+ !Right anterior tibial - mid !27.4 ! + +-----+ !Right anterior tibial - distal !47.2 ! + +-----+ !Right posterior tibial - proximal!26.8 ! + +-----+ !Right posterior tibial - mid !32.5 ! + +-----+ !Right posterior tibial - distal !71.9 ! + +-----+ !Right peroneal - proximal !88.9 ! + +-----+ !Right peroneal - mid !92.5 ! + +-----+ !Right peroneal - distal !-84.8! + +-----+ *Velocities are expressed in cm/s, Diameters are expressed in cm Prepared and Electronically Authenticated Vincent Santiago MD [id number]:00 us Shawn Lloyd MD US ORDERABLES Final Result * US ANKLE PRESSURE INDEX (07/04/2024 8:22 AM CDT) Only the most recent of2 resultswithin the time period is included. Anatomical Region Laterality Modality Lower Extremity Ultrasound 07/04/2024 7:35 AM CDT Narrative 07/04/2024 9:02 AM CDT [facility] ARABELLA Arterial Physiologic Evaluation Patient: Kailee Diaz Study ID: 1 Gender: F : 1945 Age: 78 Race: [facility] Height 157.5cm Study Date: 07/04/2024 Weight: 55.3kg Access. #: [id number] *Referring Physician:* Shawn Lloyd M.D. *Ordering Physician:* Shawn Lloyd M.D. *Heating Mechanic:* Carlos Ozuna Indications: Peripheral arterial disease. Study data: Study status: Routine. Procedure: A vascular evaluation was performed. Ankle and brachial pressures were indexed and Doppler waveforms obtained at the ankle. ARABELLA. Ankle-brachial index. Birthdate: Patient birthdate: 1945. Age: Patient is 78year(s) old. Sex: gender: female. Height: 157.5cm. 62in. Weight: 55.3kg. : 122lb. Body mass index: BMI: 22.3kg/m^2. Body surface area: BSA: 1.56m^2. Study date: Study date: 07/04/2024. Study time: 07:35 AM. Location: Vascular laboratory. Patient status: Outpatient. Impressions No evidence of arterial insufficiency at rest. Arterial evaluation findings: Right: 1. Right ARABELLA: 1.08. This is within the normal range at rest. 2. Continuous wave Doppler of the right leg vessels appears normally biphasic. 3. Right first digit pressure is below normal limits. 4. Digit photoplethysmography (PPG) demonstrates abnormal waveforms on the right. Left: 1. Left ARABELLA: 1.15. This is within the normal range at rest. 2. Continuous wave Doppler of the left leg vessels is appears normally triphasic. 3. Left first digit pressure is below normal limits. 4. Digit photoplethysmography (PPG) is essentially normal on the left. Tables: Brachial pressures: +--------+ + + ! !Right !Max ! +--------+ + + !Systolic!R(sys): 123mm Hg!Max: 123mm Hg! +--------+ + + Ankle brachial indices: +----+----+------+-----+-----+----+--------+----+---+-------+----+-----+-----+ !R PT!R DP!R Toe !R PT !R DP !R !Brachial!L PT!L !L Toe !L PT!L DP !L Toe! ! ! ! !index!index!Toe ! ! !DP ! !inde!index!index! ! ! ! ! ! !inde! ! ! ! !x ! ! ! ! ! ! ! ! !x ! ! ! ! ! ! ! ! +----+----+------+-----+-----+----+--------+----+---+-------+----+-----+-----+ !119 !133 !29mm !0.97 !1.08 !0.24!123mm Hg!129 !141!76mm Hg!1.05!1.15 !0.62 ! ! ! !Hg ! ! ! ! ! ! ! ! ! ! ! +----+----+------+-----+-----+----+--------+----+---+-------+----+-----+-----+ *Pressures are expressed in mm Hg Prepared and Electronically Authenticated Vincent Santiago MD [id number] Procedure Note John Santiago MD - 07/04/2024 [facility] ARABELLA Arterial Physiologic Evaluation Patient: Kailee Diaz Study ID: 1 Gender: Mayra : 1945 Age: 78 Race: GRACE Height 157.5cm Study Date: 07/04/2024 Weight: 55.3kg Access. #: [id number] *Referring Physician:* Shawn Lloyd M.D. *Ordering Physician:* Shawn Lloyd M.D. *Heating Mechanic:* Carlos Ozuna Indications: Peripheral arterial disease. Study data: Study status: Routine. Procedure: A vascular evaluationwas performed. Ankle and brachial pressures were indexed and Dopplerwaveforms obtained at the ankle. ARABELLA. Ankle-brachial index. Birthdate:Patient birthdate: 1945. Age: Patient is 78year(s) old. Sex: Birthgender: female. Height: 157.5cm. 62in. Weight: 55.3kg. : 122lb. Body massindex: BMI: 22.3kg/m^2. Body surface area: BSA: 1.56m^2. Study date:Study date: 07/04/2024. Study time: 07:35 AM. Location: Vascular laboratory. Patient status: Outpatient. Impressions No evidence of arterial insufficiency at rest. Arterial evaluation findings: Right: 1. Right ARABELLA: 1.08. This is within the normal range at rest. 2. Continuous wave Doppler of the right leg vessels appears normally biphasic. 3. Right first digit pressure is below normal limits. 4. Digit photoplethysmography (PPG) demonstrates abnormal waveforms onthe right. Left: 1. Left ARABELLA: 1.15. This is within the normal range at rest. 2. Continuous wave Doppler of the left leg vessels is appears normally triphasic. 3. Left first digit pressure is below normal limits. 4. Digit photoplethysmography (PPG) is essentially normal on the left. Tables: Brachial pressures: +--------+ + + ! !Right !Max ! +--------+ + + !Systolic!R(sys): 123mm Hg!Max: 123mm Hg! +--------+ + + Ankle brachial indices: +----+----+------+-----+-----+----+--------+----+---+-------+----+-----+-----+ !R PT!R DP!R Toe !R PT !R DP !R !Brachial!L PT!L !L Toe !L PT!L DP !LToe! ! ! ! !index!index!Toe ! ! !DP !!inde!index!index! ! ! ! ! ! !inde! ! ! ! !x ! !! ! ! ! ! ! !x ! ! ! ! ! ! !! +----+----+------+-----+-----+----+--------+----+---+-------+----+-----+-----+ !119 !133 !29mm !0.97 !1.08 !0.24!123mm Hg!129 !141!76mm Hg!1.05!1.15!0.62 ! ! ! !Hg ! ! ! ! ! ! ! ! ! !! +----+----+------+-----+-----+----+--------+----+---+-------+----+-----+-----+ *Pressures are expressed in mm Hg Prepared and Electronically Authenticated Vincent Santiago MD [id number] Shawn Lloyd MD US ORDERABLES Final Result * TELEMETRY REPORT (06/07/2024 3:32 PM MEASUREMENT PSYCHOLOGIST) Provider Scanning ECG ORDERABLES Final Result * POC ACTIVATED CLOTTING TIME (05/31/2024 11:47 AM MEASUREMENT PSYCHOLOGIST) Only the most recent of3 resultswithin the time period is included. [facility] ACTIVATED CLOTTING TIME POC 128 sec 05/31/2024 11:47 AM MEASUREMENT PSYCHOLOGIST [facility] [employer] [facility] Comment: Target Range(s): >400 sec. Cardiovascular Surgery >250 sec. when Cardiac Cath or other intervention is performed. <180 sec. to pull sheath Blood 05/31/2024 11:4 7 AM MEASUREMENT PSYCHOLOGIST 06/02/2024 6:52 AM MEASUREMENT PSYCHOLOGIST Shawn Lloyd MD POINT OF CARE TESTING Final Re sult [facility] CLIA# [id number] [place] [address] * AORTA ILIAC FEMORAL ANGIOGRAPHY, PERIPHERAL ARTERY INTERVENTION, IVUS-NON CORONARY INTRAVASCULAR (05/31/2024 10:59 AM MEASUREMENT PSYCHOLOGIST) 05/31/2024 9:01 AM MEASUREMENT PSYCHOLOGIST Narrative [facility] [address] [facility] - 05/31/2024 1:00 PM MEASUREMENT PSYCHOLOGIST PROCEDURE NOTE DATE OF PROCEDURE: 05/31/2024 PRESENTING HISTORY: Ms. Diaz is a 78-year-old female with extensive comorbidities including history of lung cancer, partial pneumonectomy, hypertension, dyslipidemia, peripheral arterial disease, prior tobacco use, and an extensive history of peripheral arterial disease. She has had multiple endovascular as well as open surgical interventions to the right lower extremity. The last being mechanical thrombectomy and stenting of the popliteal with Viabahn endografts. She has been followed closely with surveillance imaging and her last duplex showed critical stenosis in the TPT as well as in the mid popliteal. Given the risk for thrombosis, presented today for lower extremity angiography and endovascular intervention. SEDATION: Moderate conscious sedation was used for the procedure. Received IV fentanyl and Versed given by the metallurgy laboratory technician RN under my direct supervision. PROCEDURES: 1. Ultrasound-guided retrograde access of the left common femoral artery. 2. Abdominal aortogram. 3. Selective bilateral lower extremity angiography. 4. Stenting of the right TPT with a 4 x 48 mm Synergy BRYAN postdilated, proximal optimized with a 6 mm balloon. 5. Stenting of the right P2 popliteal with a 6 mm x 5 cm Viabahn endoprosthesis. 6. Intravascular ultrasound of the right TPT, popliteal, SFA. PROCEDURE IN DETAIL: The patient was brought into the vascular interventional suite and prepped and draped in usual sterile fashion. Under ultrasound, the common femoral artery on the left was located and noted to be calcified with eccentric calcification. It was accessed under real-time ultrasound guidance using a microaccess kit and a 6-Paraguayan sheath inserted. Retrograde angiography showed a patent common femoral and profunda femoris. The SFA and popliteal were patent with moderate diffuse disease with dominant runoff via the peroneal. An Omniflush catheter was advanced and positioned in the abdominal aorta. Abdominal aortogram showed a calcified infrarenal abdominal aortic aneurysm with calcified bilateral common and external iliac arteries that were patent. The Omniflush catheter was advanced up and over the bifurcation to the right common femoral. Selective angiography showed a patent common femoral and profunda femoris. There was an endarterectomy site in the common femoral. There was an ostial SFA stent that was patent. The mid SFA had mild disease. There were patent stents all the way from the distal SFA to the popliteal, however, in the rgdtwx-jng-occx popliteal segment there was an eccentric area of haziness. Critical stenosis in the TPT, which was densely calcified and two-vessel runoff via the peroneal and posterior tibial. A [place] Advantage wire was wired into the profunda and the 6-[place]ayan sheath switched out for a 6 x 45 cm Destination sheath that was positioned in the common femoral. The patient was fully anticoagulated to maintain a therapeutic ACT. We advanced a Command ES wire all the way to the peroneal artery. Intravascular ultrasound was advanced. This confirmed critical stenosis in the terminal popliteal and TPT. In the xpabqr-nej-xahu popliteal segment there was an area of thrombus present within the Viabahn stent. We stented the TPT with a 4 x 48 mm Synergy drug-eluting stent, postdilating the TPT with a 4 mm noncompliant balloon and the terminal popliteal with a 5.5 mm noncompliant balloon based on IVUS findings. We had difficulty getting the IVUS catheter down likely behind a stent strut in the SFA and had to rewire multiple times. I was now able to get a Command 18 wire down. We then stented the zydmhp-gdr-ezra popliteal segment, where there was an area of thrombus, with a 6 mm x 5 cm Viabahn endoprosthesis, postdilating it with a 6 mm balloon. Post IVUS showed a very good post result with good stent apposition in the TPT as well as popliteal. Final angiography showed brisk flow down the SFA and popliteal with preserved two-vessel runoff into the foot. The sheath was brought back around the bifurcation and will be removed once the ACT drops and hemostasis will be with manual compression. She tolerated the procedure well. There are no in-lab complications. PLAN: Will plan to discharge her home later today if her access site is stable. She will need continued close surveillance imaging. SNEHA/raheem us Shawn Lloyd MD CUP CATH ORDERABLES Final Resu lt [facility] [address] [place] [address]# [id number] [address] [place] [id number] * (ABNORMAL) CBC WITH DIFFERENTIAL (05/26/2024 3:03 PM MEASUREMENT PSYCHOLOGIST) WBC 6.1 3.8 - 10.8 Thousand/u L [facility] RBC 4.15 3.80 - 5.10 Million/uL [facility] HEMOGLOBIN 11.6(L) 11.7 - 15.5 g/dL [facility] HEMATOCRIT 36.2 35.0 - 45.0 % [facility] MCV 87.2 80.0 - 100.0 fL [facility] MCH 28.0 27.0 - 33.0 pg [facility] MCHC 32.0 32.0 - 36.0 g/dL [facility] Comment: For adults, a slight decrease in the calculated MCHC value (in the range of 30 to 32 g/dL) is most likely not clinically significant; however, it should be interpreted with caution in correlation with other red cell parameters and the patient's clinical condition. RDW 13.6 11.0 - 15.0 % [facility] PLATELETS 332 140 - 400 Thousand/u L [facility] MPV 9.9 7.5 - 12.5 fL [facility] NEUTROPHIL ABSOLUTE 3,184 1,500 - 7,800 cells/uL [facility] LYMPHOCYTE ABSOLUTE 1,909 850 - 3,900 cells/uL [facility] MONOCYTE ABSOLUTE 726 200 - 950 cells/uL [facility] EOSINOPHIL ABSOLUTE 183 15 - 500 cells/uL [facility] BASOPHILS ABSOLUTE 98 0 - 200 cells/uL [facility] NEUTROPHIL 52.2 % [facility] LYMPHOCYTES 31.3 % [facility] MONOCYTE 11.9 % [facility] EOSINOPHILS 3.0 % [facility] BASOPHILS 1.6 % [facility] Comment: Test Performed at: [facility] [address] [facility] [place] [address] Maxim Hernandez MD Blood 05/26/2024 3:03 PM MEASUREMENT PSYCHOLOGIST 05/26/2024 3:04 PM MEASUREMENT PSYCHOLOGIST us Shawn Lloyd MD HEMATOLOGY ORDERABLES Final Re sult [facility] [phone] [facility] [address] [address] [facility] [place] [address] * (ABNORMAL) BASIC METABOLIC PANEL (05/26/2024 3:03 PM MEASUREMENT PSYCHOLOGIST) GLUCOSE 117(H) 65 - 99 mg/dL [facility] Comment: Fasting reference interval For someone without known diabetes, a glucose value between 100 and 125 mg/dL is consistent with prediabetes and should be confirmed with a follow-up test. BUN 20 7 - 25 mg/dL [facility] CREATININE 1.14(H) 0.60 - 1.00 mg/dL [facility] GFR 49(L) > OR = 60 mL/min/1.7 3m2 [facility] BUN/CREAT RATIO 18 6 - 22 (calc) [facility] SODIUM 133(L) 135 - 146 mmol/L [facility] POTASSIUM 3.6 3.5 - 5.3 mmol/L [facility] CHLORIDE 94(L) 98 - 110 mmol/L [facility] CO2 31 20 - 32 mmol/L [facility] CALCIUM 9.2 8.6 - 10.4 mg/dL [facility] Comment: Test Performed at: [facility] [address] [place] [address] Maxim Hernandez MD Blood 05/26/2024 3:03 PM MEASUREMENT PSYCHOLOGIST 05/26/2024 3:04 PM MEASUREMENT PSYCHOLOGIST us Shawn Lloyd MD CHEMISTRY ORDERABLES Final Res ult [facility] [phone] [facility] [address] [place] [address] from Last 3 Months Insurance [facility] [employer] Medicare Part D Advance Directives For more information, please contact: [phone] * Full Code (Latest Code Status on [...] 7:50 PM 08/06/2022 8:[address] 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
--- OUTSIDE RECORDS SUMMARY | 2024-08-03 07:08 | XMS_ITS ---
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 Past Treatment and Therapy Plans No past plan information found. Lifetime Dose Tracking * Chemical Lifetime Dose Automatic Entry Manual Entr y DLP 1,733 mGycm 1,733 mGycm 0 mGycm
--- OUTSIDE RECORDS SUMMARY | 2024-08-03 07:08 | XMS_ITS | Encounter Summary ---
Author Organization [facility] Address [address] [place] [address] Care Team Providers Care Workers Compensation Specialist Name Role Phone Joby Billy MD Primary Care Provider Reason for Visit * Reason Onset Date Comments Critical ischemia 08/07/2022 Spoke Carlos/ Simran @ Dr. Lloyd exchange Encounter Details Date Type Department Care Team (Late st Contact Info) Description 08/07/2022 Telephone [facility] Admitting [address] [place] [address] Ban[place]apha vicente, [address] [facility] [address] [place] [address] Critical ischemia (Spoke Carlos/ Simran [...] Description 10/06/2024 8:15 AM CDT Office Visit [facility] - [address] [facility] [id number] [facility] [address] [place] [address] [place] [address] [facility] [address] [place] [address] documented as of this encounter Visit Diagnoses Not on filedocumented in this encounter Care Teams Workers Compensation Specialist Relationship Specialty Start Date End Date Joby Billy MD [address] [place] [address] PCP - General Family Practice 07/29/19 documented as of this encounter
== END 2024-08-03 07:04 | disposition home or self-care (01) ==
PROVIDERS: PCP Family Medicine; Visit Provider Nurse Practitioner Family
DX: I71.43 Infrarenal abdominal aortic aneurysm, without rupture (principal); J43.2 Centrilobular emphysema; K44.9 Diaphragmatic hernia without obstruction or gangrene; Z90.2 Acquired absence of lung [part of]; Z98.890 Other specified postprocedural states
CPT/HCPCS: 71250; 74176

== ENCOUNTER 2024-09-26 14:50 | Emergency (ER) | payer MEDICARE, SELFPAY ==
[2024-09-26 14:58] VITALS: BP 168/78; PULSE 89; RESP 18; TEMP 36.8; O2SAT 100
--- NOTE | 2024-09-26 15:05 | ED_ITS ---
HPI - Extremity Problem General Chief complaint: Wound/Laceration Stated complaint: R ANKLE/FOOT INJURY Time Seen by Provider: 09/26/24 15:05 Source: patient, RN notes reviewed and old records reviewed Mode of arrival: ambulatory Limitations: no limitations History of Present Illness HPI Narrative: 78-year-old female presents to the [facility] with an abrasion to just above the right medial ankle. States that 1 week ago she was cleaning the garbage cans and a tack jumped up and scraped her leg. Skin is diaper machine tender. No swelling noted at this time. Area is clean and dry. A scabbed over area is noted Had been cleaning with Betadine, a surgical scrub (possibly chlorhexidine), washing with soapy water and applying Neosporin Onset (ago): week(s) (1) Related Data Home Medications ?Medication ?Instructions ?Recorded ?Confirmed ?Last Taken ?Type cranberry extract 500 mg tablet 500 mg PO BID 02/24/19 09/26/24 03/24/21 History clopidogrel 75 mg tablet 75 mg PO DAILY 08/10/24 09/26/24 Unknown History omeprazole 40 mg capsule,delayed 40 mg PO DAILY 08/10/24 09/26/24 Unknown History release Allergies Allergy/AdvReac Type Severity Reaction Status Date / Time shellfish derived Allergy Unknown Swelling Verified 09/26/24 15:00 simvastatin Allergy Unknown arthralgias Verified 09/26/24 15:00 sulfamethizole Allergy Unknown Nausea Verified 09/26/24 15:00 nitrofurantoin (From AdvReac Intermediate Dizziness Verified 09/26/24 15:00 Macrobid) codeine AdvReac Unknown Nausea Verified 09/26/24 15:00 Review of Systems 2 Review of Systems: All systems reviewed & are unremarkable except as noted in HPI and below Constitutional: Constitutional: Reports no additional constitutional complaints ENT: Reports system reviewed and no additional complaints, except as documented Cardiovascular: Cardiovascular: Reports no additional cardiovascular complaints, Denies chest pain and Denies dyspnea Respiratory: Respiratory: Reports no additional respiratory complaints, Denies chest congestion, Denies cough and Denies dyspnea Musculoskeletal: Musculoskeletal: Reports no additional musculoskeletal complaints Integumentary/Breasts: Skin/Breast: Reports as per HPI [facility] Past Medical History Medical History Non-allergic rhinitis CKD stage 3a, GFR 45-59 ml/min Allergic rhinitis Sinusitis, acute AB (asthmatic bronchitis) UTI (urinary tract infection) Recurrent herpes labialis Skin cancer History of DVT (deep vein thrombosis) Skin cancer (melanoma) 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 07/31 PAD (peripheral artery disease) w/ stents Numbness and tingling of both legs below knees Osteoarthritis Abdominal aortic aneurysm (AAA) without rupture Chronic neck and back pain Dyslipidemia GERD without esophagitis Murmur Prediabetes Osteoporosis Essential hypertension Chronic obstructive pulmonary disease, unspecified Personal history of malignant neoplasm of bronchus and lung Surgical History Surgical History S/P peripheral artery angioplasty with stent placement (~07/2022) stenting of right popliteal artery and right mid SFA, thrombectomy of right distal SFA and above knee popliteal in stent occlusion. History of right hip replacement (~1995) S/P peripheral artery angioplasty (~2021) right lower extremity S/P peripheral artery angioplasty with stent placement (~07/2019) right lower extremity History of vertebroplasty (~12/17/20) Hx of kyphoplasty (~01/22/21) Family History Family History Sibling Family history of cardiovascular disease Mother Carcinoma of colon, Onset Age: 72 Father Family history of lung cancer, Onset Age: 82 Mother Family history of cardiovascular disease Carcinoma of colon Family history of coronary artery disease Sibling Acute myocardial infarction, Onset Age: 68 Father Family history of lung cancer Social History Social History Smoking packs per day: 0.5 Smoking cigarettes per day: 10.0 Years smoked: 50 Smoking pack-years: 25.00 Smoking status: Former smoker Tobacco type: cigarettes Second hand tobacco smoke exposure: No Smoking end date: 02/12/16 Alcohol intake: never Lack of Transportation: No Lack of Food: Never True Current Housing: I Have Housing Concerned About Future Housing: No Difficulty Paying Gas/Electric Bills: No Difficulty Paying for Meds: No Currently Unemployed: No Education: High School Diploma/GED Difficulty w/ Childcare or Family Care: No Living arrangements: with family Gender identity (if verbalized by the patient): Female Spiritual care concerns: No Comments At the time of my signature, I reviewed and agree with the nursing past medical, surgical, social, and family history. There is no relevant family history pertinent to the patient complaint. Exam 2 Const: General: cooperative, healthy appearing, comfortable, no acute distress, well developed, alert and well nourished Nutritional Appearance: w ell nourished Orientation/consciousness: patient oriented x3 Limitations: no limitations HENMT: Head: normal to inspection Eyes: General: appearance normal, both eyes and all related structures A lignment and Position: alignment normal Neck: Neck: normal visual inspection, full ROM, no lymphadenopathy and no meningeal signs Chest: Chest palpation & inspection: normal inspection of the chest Resp: Effort & Inspection: normal respiratory effort and able to speak in complete sentences Cardio: Rate: regular rate Skin: General skin exam: normal color and no rashes or lesions noted Full body images: 1. 0.5 cm abrasion without surrounding erythema, ecchymosis or swelling Neuro: General: patient oriented x3, gait normal, moves all extremities and no meningeal signs Cognition (Neuro): normal cognition Speech: normal speech Gait exam (Neuro): Normal gait present Extrem: General: normal to inspection, full ROM, capillary refill normal and normal gait Right lower extremity: ankle Details: normal to inspection and normal ROM; no tenderness Psych: Appearance: grossly normal and well kempt Mental Status: mental status grossly normal Speech and movement: Normal speech and movement present and Clear speech present Affect: normal affect Attitude: cooperative Course Course Level of Care: Express Care Visit Vital Signs Vital signs: Vital Signs Temperature 98.2 F 09/26/24 14:58 Pulse Rate 89 09/26/24 14:58 Respiratory Rate 18 09/26/24 14:58 Blood Pressure 168/78 H 09/26/24 14:58 Pulse Oximetry 100 09/26/24 14:58 Oxygen Delivery Room Air 09/26/24 14:58 Temperature 98.2 F 09/26/24 14:58 Pulse Rate 89 09/26/24 14:58 Respiratory Rate 18 09/26/24 14:58 Blood Pressure 168/78 H 09/26/24 14:58 Pulse Oximetry 100 09/26/24 14:58 Oxygen Delivery Room Air 09/26/24 14:58 Reviewed MDM - Extremity (Nontraumatic) MDM Narrative Medical decision making narrative: Patient sitting in exam room. Nontoxic, vitals are stable. Patient presents with abrasion to the medial right leg just above ankle. No signs of cellulitic changes however patient does report last year she had her tetanus. Discussed doing an antibiotic which she is declining because there is no cellulitic changes. Patient appropriate for outpatient treatment with her continuing doing what she is doing. Discharge instructions reviewed with patient, as well as provided in writing per nursing staff. The instructions also include specific and strict return/GO TO THE ER as well as f/u information. All questions have been answered, and the patient deny any further questions with discharge and discharge plan. Some parts of this dictation were generated by voice recognition software and may contain typographical and/or grammatical inaccuracies. Critical Care Time Critical Care Time Critical Care Time: No Discharge Plan Discharge Clinical Impression: Abrasion Patient Disposition: Home Condition: Stable Instructions: Abrasion (ED) Additional Instructions: Wash with warm soapy water, pat dry. Keep it covered when not at home. When at home you can keep it open to air. Today your blood pressure was 168/78. Please follow-up with primary care provider for further evaluation Patient Language: Lao Prescriptions: No Action cranberry extract 500 mg tablet 500 mg PO BID omeprazole 40 mg capsule,delayed release(DR/EC) 40 mg PO DAILY clopidogrel 75 mg tablet 75 mg PO DAILY rosuvastatin [Crestor] 20 mg tablet 20 mg PO QHS Qty: 90 2RF albuterol sulfate 90 mcg/actuation HFA aerosol inhaler 1 - 2 inh inhalation Q4-6H PRN (Reason: shortness of breath or wheezing) Qty: 8.5 2RF Xarelto 2.5 mg tablet 2.5 mg PO BID Qty: 180 3RF gabapentin 100 mg capsule 100 mg PO TID PRN (Reason: neuropathy pain) Qty: 270 0RF Trelegy Ellipta 100-62.5-25 mcg blister with device 1 inh inhalation DAILY Qty: 180 3RF Rx Instructions: Rinse mouth and spit after each use lisinopril-hydrochlorothiazide 20-25 mg tablet See Rx Instructions .ROUTE .COMPLEX Qty: 90 1RF Dose Instruction: Take 1 tablet by mouth once daily Rx Instructions: Take 1 tablet by mouth once daily tramadol 50 mg tablet 50 mg PO TID PRN (Reason: pain (scale score 7-10)) Qty: 90 3RF Follow-up/Referrals: Columba Billy MD [Primary Care Provider] [facility] Time of Disposition: 15:19
== END 2024-09-26 15:22 | disposition home or self-care (01) ==
PROVIDERS: Emergency Provider Nurse Practitioner; PCP Family Medicine
DX: S80.811A Abrasion, right lower leg, initial encounter (principal); W26.8XXA Contact with other sharp object(s), not elsewhere classified, initial encounter; I12.9 Hypertensive chronic kidney disease with stage 1 through stage 4 chronic kidney disease, or unspecified chronic kidney disease; N18.30 Chronic kidney disease, stage 3 unspecified; M19.90 Unspecified osteoarthritis, unspecified site; I71.40 Abdominal aortic aneurysm, without rupture, unspecified; E78.5 Hyperlipidemia, unspecified; I73.9 Peripheral vascular disease, unspecified; K21.9 Gastro-esophageal reflux disease without esophagitis; R73.03 Prediabetes; M81.0 Age-related osteoporosis without current pathological fracture; J44.9 Chronic obstructive pulmonary disease, unspecified; Z86.718 Personal history of other venous thrombosis and embolism; Z85.820 Personal history of malignant melanoma of skin; Z85.118 Personal history of other malignant neoplasm of bronchus and lung; Z95.820 Peripheral vascular angioplasty status with implants and grafts; Z96.641 Presence of right artificial hip joint
CPT/HCPCS: 99212; G0463